=== PATIENT | male | born 1950 | race Caucasian/White ===

== ENCOUNTER 2017-07-03 11:12 | Emergency (ER) | payer MEDICARE, BC, OTHER, SELFPAY ==
[2017-07-03 11:13] VITALS: BP 157/86; PULSE 68; RESP 16; TEMP 36.2; O2SAT 98; BMI 35.5
--- NOTE | 2017-07-03 11:27 | RAD_ITS ---
STUDY: X-RAY CHEST REASON FOR EXAM: Male, 67 years old. Shortness of breath/dyspnea. TECHNIQUE: Single AP portable view of the chest. COMPARISON: Comparison is made with prior study dated March 07, 2015. FINDINGS: EKG electrodes are seen. Hyperinflation. Mild increased markings in the left lung base suggestive of atelectasis. There is no demonstrated pleural abnormality. There is moderate cardiac enlargement. Normal mediastinum and mathew. Normal visualized pulmonary arteries. Normal visualized aortic arch and descending thoracic aorta. Normal visualized thoracic spine. Normal visualized ribs, clavicles, and shoulders. Hiatal hernia. RAD/Chest 1 View (Portable) IMPRESSION: Hyperinflation. Mild increased markings at the left lung base. Electronically Signed: Bertin Kirk MD at 13:27 EST Tel [phone], Service support ,
--- NOTE | 2017-07-03 11:27 | EKG12_ITS ---
Test Reason : Blood Pressure : / mmHG Vent. Rate : 070 BPM Atrial Rate : 070 BPM P-R Int : 162 ms QRS Dur : 084 ms QT Int : 410 ms P-R-T Axes : -43 027 030 degrees QTc Int : 442 ms Normal sinus rhythm Abnormal ECG Confirmed by DIANE MATOS MD ([id number]), news editor LUCIA MORAN ([id number]) on 07/07/2017 3:50:11 PM Referred By: Confirmed By:DIANE MATOS MD
--- NOTE | 2017-07-03 11:42 | CT_ITS ---
STUDY: CT ABDOMEN AND PELVIS WITHOUT CONTRAST REASON FOR EXAM: Male, 67 years old. 5 day history of bloody diarrhea. Fever and chills. RADIATION DOSAGE (If Supplied By Facility): CTDIvol = ( 22.36 ) mGy, DLP = ( 1128.45 ) mGycm TECHNIQUE: Transaxial images were obtained from the dome of the diaphragm to the symphysis pubis without oral contrast, and without intravenous contrast. Sagittal and coronal images were reconstructed. Individualized dose optimization techniques were used for this CT. COMPARISON: Comparison is made with prior study dated January 14, 2015. FINDINGS: Minimal increased markings in the lateral aspect of the lingular segment of the left upper lobe suggestive of atelectasis. Coronary artery calcification. Normal liver. Normal gallbladder and extrahepatic biliary system. Normal spleen. Normal pancreas. Normal bilateral adrenal glands. Normal right kidney. Normal left kidney. There is a large hiatal hernia composed mostly of the fundus of the stomach. Normal small intestine. There are multiple colonic diverticula consistent with diverticulosis. Mild degree of increased markings in the surrounding sigmoid peritoneal fat suggestive of mild degree of sigmoid diverticulitis. There is non-visualization of the appendix. There is diffuse atherosclerotic calcification of the abdominal aorta, without a demonstrated aneurysm. Normal inferior vena cava. Normal retroperitoneum. Normal urinary bladder. There is enlargement of the prostate gland. Evidence of prior left inguinal hernia repair. There are diffuse degenerative changes of the visualized lumbar spine. CT/Abdomen/Pelvis without Cont IMPRESSION: Sigmoid diverticulosis and mild degree of the sigmoid diverticulitis. Electronically Signed: Bertin Kirk MD at 13:31 EST Tel [phone], Service support ,
--- NOTE | 2017-07-03 11:43 | ED.VISSUMM ---
- ER Visit Summary Date of Service: 07/03/17 Chief Complaint: [] Harsh cough fever body aches now diarrhea and blood per rectum History of Present Illness: The patient is a 67 M [] week or more of harsh cough body aches was seen at [facility] facility had flu screen that was negative x-rays labs etc. the are all normal he was told follow-up his family physicians to include [facility]. He reports for the last few days also developed crampy lower abdominal pain 5-6 diarrheal bowel movements a day that are occasionally bloody and he presents for evaluation. His COPD is generally stable he is not prone to pneumonia he does not recall ever having an SD DVT he does not have any known GI elements he has not been on antibiotics that he can recall he has no history of C. difficile Physical Examination: [] His vitals are within normal range she is chronically on about 2-4 L of oxygen is wearing that now his pulse ox is 95% his nose is slightly congested he does have a dry cough but is in no distress his lungs are diminished bilaterally the heart tones are unremarkable distant abdomen is obese but soft nontender the area is unremarkable the rectal exam with nurse shipping coordinator shows some mild brownish liquid no blood no pain upper lower extremities unremarkable Test Results: [] Emergency Department Course and Treatment: [] He has multiple complaints as above given all of that a comprehensive evaluations pursued Studies are generally unremarkable, hemoglobin 13, CT abdomen shows sigmoid diverticulitis no abscess he was started on IV fluids IV antibiotics. We spoke with our hospitalist here at [facility], the patient did pass a darker stool and there is a concern for GI bleeding given that there is no GI coverage at [facility] hospitalist recommended transfer to [facility], patient was agreeable to that transfer we spoke with Dr. guicho quintana at [facility] and then Dr. muir at [facility], they both accepted the patient in transfer he is very stable he will be transferred there for further management Treatment Plan: [] Disposition: [] As for stable transferred [facility] Impression: [] Sigmoid diverticulitis, concern for GI bleed, exacerbation of COPD This note was generated with [employer] dictation software. It may contain incorrect words, spelling, and punctuation that were not noted in review of the chart prior to signing ED Disposition - Plan for ED Patient: Chief Complaint: Shortness of Breath Referrals: Ge Martinez MD [Primary Care Provider] -
[2017-07-03] MEDS: Ipratropium/Albuterol Sulfate 3 ML AMPUL.NEB INHALATION (11:45)
[2017-07-03 11:51] VITALS: BP 126/73; PULSE 70; RESP 20
[2017-07-03 11:53] VITALS: PULSE 70; RESP 20
[2017-07-03] MEDS: 0.9% Normal Saline 1,000 ML 125 ML IV (12:06)
[2017-07-03 12:31] LABS: Absolute Lymphocyte Count 1.27 X10^3/ul (0.83-4.51); Absolute Neutrophil Count 3.3 X10^3/uL (2.0-7.7); Basophil# 0.06 X10^3/uL; Eosinophil# 0.42 X10^3/uL; Eosinophils% 6.9 % (0-5); Hematocrit 39.9 % (40-54); Hemoglobin 12.7 g/dl (13.0-16.5); Lymphocyte # 1.27 X10^3/ul (4.0); Lymphocyte % 20.9 % (19-41); Mean Corp Hgb Conc 31.8 g/gl (32-36); Mean Corpuscular Hgb 28.8 pg (27.0-32.0); Mean Corpuscular Volume 90.5 fL (80-94); Mean Platelet Vol. 9.8 fl (6.2-12.0); Monocyte# 1.05 X10^3/uL; Monocyte% 17.3 % (0-10); Neutrophil # 3.26 X10^3/uL (2.7-7.7); Neutrophil % 53.6 % (47-70); Platelet Count 238 K/mm3 (150-450); RBC Distribution Width CV 12.7 % (11.6-14.6); RBC Distribution Width SD 41.7 fl (35.1-43.9); Red Blood Count 4.41 M/mm3 (4.6-6.2); White Blood Count 6.1 K/mm3 (4.4-11.0)
[2017-07-03 12:33] LABS: POSITIVE COUNT NO; POSITIVE DIFFERENTIAL NO; POSITIVE MORPHOLOGY NO
[2017-07-03 12:38] LABS: Bacteria 0 SEEN /hpf (None Seen); Mucous, Urine 0 SEEN /hpf (<or=2+); Squamous Epithelial Cells - UA 0 SEEN /hpf (0-5)
[2017-07-03 12:39] LABS: Color, Urine Yellow (Yellow); Glucose, Dipstick Normal (Normal); Ketone-Dipstick Negative (Negative); Leukocyte Esterase-Dipstick 25 /ul (Negative); Nitrite-Dipstick Negative (Negative); Occult Blood-Urine 10 /ul (Negative); Protein-Dipstick Negative (Negative); Urine Bilirubin Dipstick Negative (Negative); Urine Clarity Sl. Cloudy (Clear); Urine Urobilinogen Normal (Normal); Urine pH 6.5 (5.0 - 8.0)
[2017-07-03 12:43] LABS: AST(SGOT) 19 U/L (15-37); Alanine Aminotransfer ALT/SGPT 33 U/L (16-61); Albumin, Serum 3.4 g/dL (3.2-5.0); Alkaline Phosphatase 62 U/L (45-117); Anion Gap 8 (5-15); BUN 9 mg/dL (7-18); BUN/Creat Ratio 10.4 RATIO (10-20); Bilirubin, Direct 0.13 mg/dL (0.00-0.30); Calcium,Total 8.7 mg/dL (8.5-10.1); Chloride 97 mmol/L (98-107); Creatinine, Serum 0.87 mg/dL (0.70-1.30); EST Glomerular Filtration Rate 93 mL/min (>60); Est Glom Filt Rate - Afr Amer 112 mL/min (>60); Globulin 3.9 g/dL (2.2-4.2); Glucose 141 mg/dL (70-110); Lipase 130 U/L (73-393); Potassium 3.8 mmol/L (3.5-5.1); Protein, Total 7.3 g/dL (6.4-8.2); Sodium Level 135 mmol/L (136-145)
[2017-07-03 12:52] LABS: Red Blood Cells-Urine 0-5 SEEN /hpf (0-5); White Blood Cells 0-5 SEEN /hpf (0-5)
[2017-07-03 12:57] LABS: BNP,B-Type NATRIURETIC PEPTIDE 29.4 pg/mL (0-100)
[2017-07-03 13:13] VITALS: BP 118/70; PULSE 63; RESP 18; O2SAT 98
--- NOTE | 2017-07-03 15:03 | ED.RN ---
spoke with Ranjana barrios to inform of lab results per their request
[2017-07-03 15:34] VITALS: BP 130/79; PULSE 65; RESP 14; O2SAT 98
== END 2017-07-03 16:45 | disposition short-term general hospital (02) ==
LOC: ED 13:29 → MS3 14:58
PROVIDERS: Emergency Provider Emergency Medicine; Family Provider Family Medicine; PCP Family Medicine
DX: K57.32 Diverticulitis of large intestine without perforation or abscess without bleeding (principal); J44.1 Chronic obstructive pulmonary disease with (acute) exacerbation; E11.9 Type 2 diabetes mellitus without complications; R06.02 Shortness of breath
CPT/HCPCS: 71045; 74176; 80048; 80076; 81001; 82274; 83690; 83880; 84484; 85025; 87493; 87804; 93005; 94640; 99285; J7030; J7050; A4216; J0744

== ENCOUNTER 2017-09-16 08:16 | Emergency (ER) | payer OTHER, MEDICARE, BC, SELFPAY ==
[2017-09-16 08:17] VITALS: BP 178/95; PULSE 57; RESP 16; TEMP 36.5; O2SAT 99; BMI 72.7
[2017-09-16 08:53] LABS: Absolute Lymphocyte Count 1.12 X10^3/ul (0.83-4.51); Absolute Neutrophil Count 4.3 X10^3/uL (2.0-7.7); Basophil# 0.04 X10^3/uL; Basophil% 0.6 % (0-1); Eosinophil# 0.44 X10^3/uL; Eosinophils% 6.8 % (0-5); Hematocrit 40.2 % (40-54); Lymphocyte # 1.12 X10^3/ul (4.0); Lymphocyte % 17.2 % (19-41); Mean Corp Hgb Conc 32.3 g/gl (32-36); Mean Corpuscular Hgb 29.4 pg (27.0-32.0); Mean Platelet Vol. 9.9 fl (6.2-12.0); Monocyte# 0.58 X10^3/uL; Monocyte% 8.9 % (0-10); Neutrophil # 4.32 X10^3/uL (2.7-7.7); Neutrophil % 66.3 % (47-70); Platelet Count 238 K/mm3 (150-450); RBC Distribution Width CV 12.9 % (11.6-14.6); RBC Distribution Width SD 43.2 fl (35.1-43.9); Red Blood Count 4.42 M/mm3 (4.6-6.2); White Blood Count 6.5 K/mm3 (4.4-11.0)
[2017-09-16 08:55] LABS: POSITIVE COUNT NO; POSITIVE DIFFERENTIAL NO; POSITIVE MORPHOLOGY NO
[2017-09-16 08:59] LABS: BUN 13 mg/dL (7-18); BUN/Creat Ratio 16.1 RATIO (10-20); Calcium,Total 8.7 mg/dL (8.5-10.1); Chloride 101 mmol/L (98-107); Creatinine, Serum 0.81 mg/dL (0.70-1.30); EST Glomerular Filtration Rate 101 mL/min (>60); Est Glom Filt Rate - Afr Amer 122 mL/min (>60); Estimated Creatinine Clearance 98.64 ml/min; Glucose 199 mg/dL (74-106); Sodium Level 140 mmol/L (136-145)
[2017-09-16 09:00] LABS: Anion Gap 9 (5-15)
[2017-09-16 09:03] VITALS: PULSE 58; RESP 20
[2017-09-16 09:03] LABS: Bacteria 0 SEEN /hpf (None Seen); Mucous, Urine 0 SEEN /hpf (<or=2+); Squamous Epithelial Cells - UA 0 SEEN /hpf (0-5); White Blood Cells 0 SEEN /hpf (0-5)
[2017-09-16] MEDS: Ipratropium/Albuterol Sulfate 3 ML AMPUL.NEB INHALATION (09:03)
[2017-09-16] MEDS: 0.9% Normal Saline 1,000 ML 150 ML IV (09:08)
[2017-09-16] MEDS: MethylPREDNISolone 125 MG/2 ML Vial IV (09:09)
[2017-09-16 09:12] LABS: Color, Urine Yellow (Yellow); Glucose, Dipstick Normal (Normal); Ketone-Dipstick Negative (Negative); Leukocyte Esterase-Dipstick Negative /ul (Negative); Nitrite-Dipstick Negative (Negative); Occult Blood-Urine 10 /ul (Negative); Protein-Dipstick Negative (Negative); Urine Bilirubin Dipstick Negative (Negative); Urine Clarity Clear (Clear); Urine Urobilinogen Normal (Normal); Urine pH 6.5 (5.0 - 8.0)
[2017-09-16 09:13] LABS: Lactic Acid 1.7 mmol/L (0.4-2.0)
[2017-09-16 09:21] LABS: Red Blood Cells-Urine 0-5 SEEN /hpf (0-5)
--- NOTE | 2017-09-16 09:34 | RAD_ITS ---
STUDY: X-RAY CHEST REASON FOR EXAM: Male, 67 years old. COPD, productive cough TECHNIQUE: PA and lateral views of the chest. COMPARISON: July 03, 2017 FINDINGS: There is new mild elevation of the left hemidiaphragm and left basilar atelectasis. There is no demonstrated pleural abnormality. Normal size heart. Normal mediastinum and mathew. Normal visualized pulmonary arteries. There is atherosclerotic calcification of the aortic arch with tortuosity. There are diffuse degenerative changes of the visualized thoracic spine. Normal visualized ribs, clavicles, and shoulders. There is no demonstrated abnormality of the visualized soft tissue structures of the upper abdomen. RAD/Chest PA and Lateral IMPRESSION: There is new mild elevation of the left hemidiaphragm and left basilar atelectasis. Electronically Signed: Skye Mims MD at 10:01 EDT , Service support ,
--- NOTE | 2017-09-16 09:56 | ED.VISSUMM ---
- ER Visit Summary Date of Service: 09/16/17 Chief Complaint: Cough and shortness of breath History of Present Illness: The patient is a [address] Martinez. He reports that he has a cough began 2 days ago. Is productive yellow sputum without blood. He denies any fever or chills. Reports that he has mild shortness of breath currently and severe shortness of breath at worst. This is worsened by exertion or coughing. It is relieved by oxygen and albuterol. He denies any chest pain, pressure, or tightness. Physical Examination: Vitals: Stable. Afebrile. General: Well-nourished and well-developed. Head: Normocephalic atraumatic. Neck: Supple, no lymphadenopathy. No JVD. Nontender. Cardiovascular: Regular rate and rhythm. 2 out of 6 systolic murmur. Respiratory: No respiratory distress. Mild wheezing bilaterally with decreased air movement. Abdominal: Soft, nontender, nondistended, normal bowel sounds. No guarding, rebound, or peritoneal signs. Back: Nontender. Extremities: Nontender, no edema. Skin: Normal color, no rash. Neurologic: Alert and oriented ?3. Cranial nerves II through XII are intact. Normal strength and sensation. Psych: Normal affect. Test Results: CBC is remarkable for lymphocytes of 17 eosinophils of 7. Chem-7 is more for glucose of 199. UA is negative. Lactic acid is normal. Chest x-ray shows chronic changes. Chest x-ray shows left basilar atelectasis with an elevated left hemidiaphragm. Emergency Department Course and Treatment: Patient is treated with albuterol and Atrovent aerosols. He was given Solu-Medrol IV. He feels improved. Treatment Plan: Patient would like to go home. He will be discharged on prednisone and Zithromax. Is given a prescription for a nebulizer. Instructed to follow-up with Dr. Martinez in 1-2 days if not improving. Return to the emergency department for any worsening symptoms. Disposition: To home in improved and stable condition. Impression: 1. COPD exacerbation. This note was generated with Slate Scienceation software. It may contain incorrect words, spelling, and punctuation that were not noted in review of the chart prior to signing ED Disposition - Plan for ED Patient: Disposition: Home or Assisted Living Chief Complaint: Shortness of Breath Instructions: ED COPD Flare Prescriptions: Albuterol Aerosols [Ventolin Aerosols] 2.5 mg INHALATION Q4H PRN #25 vial Azithromycin [Zithromax] 250 mg PO DAILY #6 tablet Nebulizer [Aeroneb Go Nebulizer] 1 each MC DAILY #1 each Nebulizer Accessories [Aeroneb Go] 1 each MC DAILY #1 each Nebulizer and Compressor [[place] Choice Nebulizer] 1 ea MC DAILY #1 ea Prednisone 10 mg PO DAILY #63 tablet Referrals: Ge Martinez MD [Primary Care Provider] - 1-2 Days if not improving
[2017-09-16 10:44] VITALS: BP 117/52; PULSE 73; RESP 24; O2SAT 92
[2017-09-16] MEDS: predniSONE 20 MG Tablet 60 MG PO (11:30)
[2017-09-16] MEDS: Azithromycin 250 MG Tablet 500 MG PO (11:30)
== END 2017-09-16 12:04 | disposition home or self-care (01) ==
PROVIDERS: Emergency Provider Emergency Medicine; Family Provider Family Medicine; PCP Family Medicine
DX: J44.1 Chronic obstructive pulmonary disease with (acute) exacerbation (principal); I25.10 Atherosclerotic heart disease of native coronary artery without angina pectoris; G47.33 Obstructive sleep apnea (adult) (pediatric); E11.9 Type 2 diabetes mellitus without complications; I10 Essential (primary) hypertension; N40.0 Benign prostatic hyperplasia without lower urinary tract symptoms; Z86.73 Personal history of transient ischemic attack (TIA), and cerebral infarction without residual deficits; R01.1 Cardiac murmur, unspecified
CPT/HCPCS: 36415; 71046; 80048; 81001; 83605; 85025; 87040; 87070; 87205; 94640; 96361; 96374; 99285; J7030; A4216

== ENCOUNTER 2017-10-14 08:26 | Observation (INO) | payer MEDICARE, BC, SELFPAY ==
[2017-10-14] VITALS (11 sets, daily range): BP systolic 122–153; BP diastolic 72–98; PULSE 63–97; RESP 18–26; TEMP 36.6–36.9; O2SAT 94–99; BMI 33.6
--- NOTE | 2017-10-14 08:43 | EKG12_ITS ---
Test Reason : SOB Blood Pressure : / mmHG Vent. Rate : 063 BPM Atrial Rate : 063 BPM P-R Int : 194 ms QRS Dur : 090 ms QT Int : 404 ms P-R-T Axes : -10 040 047 degrees QTc Int : 413 ms Normal sinus rhythm Normal ECG Confirmed by DIANE MATOS MD ([id number]), state editor LUCIA MORAN ([id number]) on 10/17/2017 2:58:31 PM Referred By: TYRA Confirmed By:DIANE MATOS MD
--- NOTE | 2017-10-14 08:48 | ED.VISSUMM ---
- ER Visit Summary Date of Service: 10/14/17 Chief Complaint: Shortness of breath History of Present Illness: The patient is a 67 M with a history of COPD. He wears 3 L of oxygen chronically. Patient reports increased shortness of breath and wheezing over the past 4 or 5 days. He is bringing up yellow sputum. He denies fever. He does note decreased activity tolerance secondary to his shortness of breath. Physical Examination: Blood pressure is 153/98, temperature 98.4, heart rate 66, respiratory rate 26, pulse ox 95% on 3 L nasal cannula. Head and neck examination is unremarkable. Heart is regular rate and rhythm. Lung sounds are with expiratory wheezes throughout. He is able to speak 6-7 word sentences. Abdomen is soft and nontender. Lower extremity examination reveals no calf tenderness or edema. Strong distal pulses are noted. Test Results: EKG is sinus at 63 with no sign of acute ischemia. Portable chest x-ray is read as no acute abnormality. CBC and chemistry studies are significant only for glucose of 215. Troponin is less than 0.015. Lactate is normal. Blood cultures were sent. Emergency Department Course and Treatment: Patient was given a cycle of aerosols treatments along with IV Solu-Medrol. On repeat evaluation he has continued expiratory wheezes throughout. Respiratory rate is improved into the teens. Oxygen saturation is maintained. Patient is given a dose of p.o. Levaquin and will be admitted for further steroids and breathing treatments. Treatment Plan: [] Disposition: Admit Impression: COPD exacerbation This note was generated with iHandle dictation software. It may contain incorrect words, spelling, and punctuation that were not noted in review of the chart prior to signing ED Disposition - Plan for ED Patient: Chief Complaint: Shortness of Breath Referrals: Ge Martinez MD [Primary Care Provider] -
[2017-10-14] MEDS: Albuterol 2.5 MG/3 ML VIAL.NEB. INHALATION ×3 (08:55→15:35)
[2017-10-14] MEDS: Ipratropium/Albuterol Sulfate 3 ML AMPUL.NEB INHALATION ×3 (08:55→19:04)
--- NOTE | 2017-10-14 09:00 | RAD_ITS ---
STUDY: X-RAY CHEST REASON FOR EXAM: Male, 67 years old. Shortness of breath/dyspnea. TECHNIQUE: Single AP portable view of the chest. COMPARISON: Comparison is made with prior study dated September 16, 2017. FINDINGS: EKG electrodes are seen. The lungs are clear and expanded. There is no demonstrated pleural abnormality. Normal size heart. Normal mediastinum and mathew. Normal visualized pulmonary arteries. Normal visualized aortic arch and descending thoracic aorta. Normal visualized thoracic spine. Normal visualized ribs, clavicles, and shoulders. Hiatal hernia. RAD/Chest 1 View (Portable) IMPRESSION: No acute abnormality is seen. Electronically Signed: Bertin Kirk MD at 9:44 EDT Tel [phone], Service support ,
[2017-10-14 09:10] LABS: Absolute Lymphocyte Count 0.98 X10^3/ul (0.83-4.51); Absolute Neutrophil Count 3.2 X10^3/uL (2.0-7.7); Basophil# 0.04 X10^3/uL; Basophil% 0.7 % (0-1); Eosinophil# 1.01 X10^3/uL; Eosinophils% 17.6 % (0-5); Hematocrit 41.5 % (40-54); Hemoglobin 13.5 g/dl (13.0-16.5); Lymphocyte # 0.98 X10^3/ul (4.0); Mean Corp Hgb Conc 32.5 g/gl (32-36); Mean Corpuscular Hgb 29.7 pg (27.0-32.0); Mean Corpuscular Volume 91.4 fL (80-94); Mean Platelet Vol. 9.7 fl (6.2-12.0); Monocyte# 0.52 X10^3/uL; Neutrophil # 3.19 X10^3/uL (2.7-7.7); Neutrophil % 55.5 % (47-70); Platelet Count 243 K/mm3 (150-450); RBC Distribution Width CV 12.6 % (11.6-14.6); RBC Distribution Width SD 41.4 fl (35.1-43.9); Red Blood Count 4.54 M/mm3 (4.6-6.2); White Blood Count 5.8 K/mm3 (4.4-11.0)
[2017-10-14 09:12] LABS: POSITIVE COUNT NO; POSITIVE DIFFERENTIAL NO; POSITIVE MORPHOLOGY NO
[2017-10-14] MEDS: MethylPREDNISolone 125 MG/2 ML Vial IV (09:15)
[2017-10-14] MEDS: 0.9% Normal Saline 1,000 ML 150 ML IV (09:15)
[2017-10-14 09:37] LABS: Lactic Acid 1.6 mmol/L (0.4-2.0)
[2017-10-14 09:38] LABS: Anion Gap 7 (5-15); BUN 9 mg/dL (7-18); BUN/Creat Ratio 12.2 RATIO (10-20); Calcium,Total 8.7 mg/dL (8.5-10.1); Chloride 100 mmol/L (98-107); Creatinine, Serum 0.74 mg/dL (0.70-1.30); EST Glomerular Filtration Rate 112 mL/min (>60); Est Glom Filt Rate - Afr Amer 136 mL/min (>60); Glucose 215 mg/dL (74-106); Potassium 3.9 mmol/L (3.5-5.1); Sodium Level 138 mmol/L (136-145)
--- NOTE | 2017-10-14 09:55 | NURSING ---
CALLED HELEN SCHAFER, LEFT A MESSAGE ON TRANSFER LINE WITH INFO
[2017-10-14] MEDS: levoFLOXacin 750 MG Tablet PO (09:56)
--- NOTE | 2017-10-14 10:18 | NURSING ---
MED SURG OBS TERELETSKY
[2017-10-14 12:11] LABS: Bedside Glucose 220 mg/dL (70-110)
[2017-10-14] MEDS: 0.9% NaCl Peripheral Flush Adult/Peds IV ×2 (13:26→22:01)
--- NOTE | 2017-10-14 13:59 | CASEMGMT ---
RN CM Assessment. See Link. DC Plan is to return home. -Pt has home O2. Discussed increasing portability with [facility], and pt will discuss getting portable concentrator with them. -Independent, is nurse and pt denies dc needs at this time. Donna MATSONN RN ACM
--- NOTE | 2017-10-14 14:16 | HP.PCM_ITS ---
Problem List (1) Diabetes mellitus type 2 in obese Status: Chronic (2) Hyperlipidemia Status: Chronic (3) Hypertension Status: Chronic (4) Benign prostatic hypertrophy Status: Chronic (5) Sleep apnea Status: Chronic (6) Coronary atherosclerosis of [place] coronary vessel Status: Chronic Comment: Status post 2 stents in 2004 (7) COPD (chronic obstructive pulmonary disease) Status: Chronic (8) History of PTCA Status: Chronic (9) History of CVA (cerebrovascular accident) Status: Chronic (10) AV block, Mobitz 1 Status: Chronic (11) History of upper gastrointestinal bleeding Status: Resolved (12) History of DVT (deep vein thrombosis) Status: Resolved (13) GERD (gastroesophageal reflux disease) Status: Chronic History of Present Illness Date of Admission: 10/14/17 Chief Complaint: Shortness of breath The patient is a 67 year old M who presents to the emergency room with a 4-5 day history of shortness of breath, productive cough with yellow sputum. He denies fever, chills. Denies chest pain. Patient has oxygen available at home which she wears as needed. He states he has also recently set up with a nebulizer from [facility]. He has a history of COPD but has not followed with a de icer finisher since initial diagnosis. He is a former smoker and quit approximately 16 years ago. Patient's other past medical history includes type 2 diabetes mellitus, hyperlipidemia, hypertension, BPH, obstructive sleep apnea on CPAP, CAD status post stent ?2, history of CVA, history of DVT, history of AV block, Mobitz 1. Patient denies any other current complaints. Past Medical History Past Medical History (Chronic Problems): Chronic Problems GERD (gastroesophageal reflux disease) (Chronic) Diabetes mellitus type 2 in obese (Chronic) Hyperlipidemia (Chronic) Hypertension (Chronic) Benign prostatic hypertrophy (Chronic) Sleep apnea (Chronic) Coronary atherosclerosis of [place] coronary vessel (Chronic) Status post 2 stents in 2004 COPD (chronic obstructive pulmonary disease) (Chronic) History of PTCA (Chronic) History of CVA (cerebrovascular accident) (Chronic) AV block, Mobitz 1 (Chronic) Allergies No Known Allergies Allergy (Verified 10/14/17 08:29) Home Medications: Ambulatory Orders Medication Instructions Recorded Hydrochlorothiazide [Hctz] 25 mg PO DAILY 03/19/14 Lisinopril [Zestril] 20 mg PO BID 03/19/14 Tamsulosin HCl [Flomax] 0.4 mg PO DAILY 03/19/14 Amitriptyline HCl 10 mg PO QHS PRN 03/22/14 Isosorbide Mononitrate [Imdur] 60 mg PO DAILY 03/22/14 Albuterol Inhaler [Ventolin Hfa] 2 puff INHALATION Q2H PRN PRN #1 03/24/14 Pantoprazole Sodium [Protonix] 40 mg PO DAILY #30 tablet 03/24/14 Metformin HCl [Glucophage] 500 mg PO BID 12/24/14 Atorvastatin Calcium [Lipitor] 80 mg PO QHS #30 tablet 03/10/15 Hyoscyamine Sulfate 0.125 mg SL BID PRN PRN 12/18/16 Symbicort 160-4.5 Mcg Inhaler 1 puff PO DAILY 12/18/16 Ascorbic Acid [Vitamin C] 500 mg PO DAILY 07/03/17 Aspirin [Aspirin, Baby] 81 mg PO QHS 07/03/17 Cinnamon Bark [Cinnamon] 1,000 mg PO DAILY 07/03/17 Finasteride [Proscar] 5 mg PO DAILY 07/03/17 Fish Oil/Dha/Epa [Fish Oil 1,200 1 each PO DAILY 07/03/17 mg Fish Oil] Metoprolol Tartrate 25 mg PO BID 07/03/17 Ranitidine [Zantac] 150 mg PO BID 07/03/17 Albuterol Aerosols [Ventolin 2.5 mg INHALATION Q4H PRN #25 vial 09/16/17 Aerosols] Clopidogrel Bisulfate [Plavix] 75 mg PO DAILY 10/14/17 Glucosamine/MSM/Chondroitin A 1 each PO DAILY 10/14/17 [Glucosamine Chondroit MSM Tab] Iron 10/14/17 Multivitamin [Multiple Vitamins] 1 each PO DAILY 10/14/17 Zolpidem Tartrate [Ambien] 10 mg PO QHS 10/14/17 Surgical History: appendectomy, herniorrhaphy, - - Arthroscopy both knees, cardiac stents Psychiatric History: No pertinent psych hx Lives: Spouse/ Significant Other Smoking Status: Former smoker Alcohol: None Drugs: None - *Family History Maternal History Items: No pertinent history Paternal History Items: Heart Disease Sibling History Items: No pertinent history Review of Systems Constitutional: Reports: Fatigue. Denies: Chills, Fever, Weight Change HEENT: Denies: Head Aches, Sinus Congestion, Sinus Drainage Cardiovascular: Denies: Chest Pain, Light Headedness, Palpitations, Syncope Respiratory: Reports: Cough, Shortness of Breath, Sputum production, Wheezing Gastrointestinal: Denies: Abdominal Pain, Nausea, Vomiting Genitourinary: Denies: Dysuria Musculoskeletal: Denies: Joint Pain, Joint Tenderness Skin: Denies: Rash, Wounds Neurological: Denies: Numbness, Tingling, Focal weakness Psychiatric: Denies: Anxiety, Depression, Homicidal Ideations, Suicidal Ideations Hematologic/ Lymphatic: Denies: Easy Bruising, Easy Bleeding VTE Information - Inpt Only VTE Present on Admission: No VTE Mechan Device Prophylaxis: None VTE Pharm Prophylaxis ordered?: Yes - Physical Exam General: Alert, Oriented x3, Cooperative, No apparent distress HEENT: Atraumatic, PERRLA, EOMI, Normocephalic Neck: Supple, No JVD, Negative Carotid Bruits Lungs: Diminished, Wheezes Cardiovascular: Regular rate, Regular Rhythm, Normal S1, Normal S2, No murmurs Abdomen: Bowel Sounds Present, Soft, Non Tender, Non-Distended Extremities: No clubbing, No cyanosis, No edema, Capillary Refill Less than 3 Seconds Skin: No rashes, No breakdown Musculoskeletal: No Tenderness to Palpation of Joints or Extremities Neurological: Cranial nerves II-XII grossly intact, Neuro grossly intact Psych/Mental Status: Normal Affect, Appropriate Vital Signs Temp Pulse Resp BP Pulse Ox 98.1 F 66 24 H 129/73 H 94 10/14/17 11:12 10/14/17 11:12 10/14/17 11:12 10/14/17 11:12 10/14/17 11:12 Oxygen Flow Rate (L/min) 4 Oxygen Delivery Method Nasal Cannula Weight: 112.5 kg Body Mass Index (BMI) 33.6 POC Glucose 10/14/17 11:18 POC Glucose 220 H Assessment/Plan 1. Acute on chronic COPD exacerbation-chest x-ray on admission with no acute abnormality. Afebrile. No leukocytosis. Patient with wheezing on assessment. Albuterol and DuoNeb aerosols. IV Solu-Medrol. Zithromax 250 mg p.o. daily. Obtain respiratory panel. Recommend outpatient follow-up with pulmonary medicine. Patient wishes to follow-up with Dr. Vasquez or Dr. Beltran at discharge. 2. Acute hypoxia on chronic hypoxic respiratory failure-secondary to #1. Has oxygen available at home which he wears as needed. Continue supplemental oxygen to maintain O2 at or above 90%. 3. Type 2 diabetes mellitus-continue home oral regimen. Sliding scale insulin. Accu-Cheks before meals at bedtime. 4. CAD status post stents X2 in 2004-continue aspirin, statin, Plavix. 5. History of CVA-continue aspirin, statin, Plavix. 6. Obstructive sleep apnea-continue CPAP at bedtime. 7. History of DVT-previously in 2013. Not on further oral anticoagulation. 8. History of upper GI bleed-continue PPI. 9. Hypertension-stable, continue home regimen including hydrochlorothiazide, Imdur, lisinopril. 10. Hyperlipidemia-continue statin. 11. BPH-continue home Flomax, Proscar regimen. 12. GERD-continue PPI. 13. Obesity-encouraged diet and lifestyle modifications. DVT prophylaxis-heparin subcu. This patient was seen by ANYA Boyer under the supervision of Dr. Valdez.
[2017-10-14] MEDS: guaiFENesin Dm 10 ML UDC PO (16:05)
--- NOTE | 2017-10-14 16:21 | CHAPLAIN ---
Type of Pastoral Visit _x__ Initial Visit ___ Follow-up Visit ___ On-call Visit ___ General Patient Visit ___ Spiritual Assessment ___ Family Conference ___ Bereavement ___ Rapid Response ___ Code Blue ___ Other (describe below) Pastoral Care Referral From _x__ Patient ___ Family ___ Nurse ___ Physician ___ Windows Support Engineer ___ Floor Installation Mechanic ___ Other (describe below) Sacrament/Intervention _x__ Active listening ___ Anointing ___ Confucianist ___ Bereavement ___ Communion _x__ Mame exploration ___ _x__ Life review _x__ Prayer ___ Reconciliation ___ Sacrament of Sick ___ Supportive presence ___ Wedding ___ Other (describe below) Pastoral Comments
[2017-10-14 16:51] LABS: Bedside Glucose 310 mg/dL (70-110)
[2017-10-14] MEDS: Metoprolol Tartrate 25 MG Tablet PO (21:48)
[2017-10-14] MEDS: Atorvastatin Calcium 80 MG Tablet PO (21:48)
[2017-10-14] MEDS: Aspirin 81 MG TAB.CHEW PO (21:49)
[2017-10-14] MEDS: Heparin Injection (Vial) 5,000 UNIT/ML VIAL 5000 UNIT SC (21:49)
[2017-10-14] MEDS: Lisinopril 20 MG Tablet PO (21:54)
[2017-10-15] VITALS (10 sets, daily range): BP systolic 109–149; BP diastolic 62–86; PULSE 70–96; RESP 16–22; TEMP 36.6–36.8; O2SAT 91–97
[2017-10-15 00:11] LABS: Bedside Glucose 422 mg/dL (70-110)
[2017-10-15] MEDS: guaiFENesin Dm 10 ML UDC PO ×2 (00:48→05:54)
[2017-10-15] MEDS: Ipratropium/Albuterol Sulfate 3 ML AMPUL.NEB INHALATION ×3 (01:11→13:42)
[2017-10-15] MEDS: Albuterol 2.5 MG/3 ML VIAL.NEB. INHALATION (03:33)
[2017-10-15 06:11] LABS: Bedside Glucose 256 mg/dL (70-110)
[2017-10-15] MEDS: Finasteride 5 MG Tablet PO (07:26)
[2017-10-15] MEDS: Isosorbide Mononitrate 60 MG Tablet PO (07:26)
[2017-10-15] MEDS: Metoprolol Tartrate 25 MG Tablet PO (07:26)
[2017-10-15] MEDS: Pantoprazole Sodium 40 MG Tablet PO (07:26)
[2017-10-15] MEDS: hydroCHLOROthiazide 25 MG Tablet PO (07:27)
[2017-10-15] MEDS: Heparin Injection (Vial) 5,000 UNIT/ML VIAL 5000 UNIT SC (07:27)
[2017-10-15] MEDS: Azithromycin 250 MG Tablet PO (07:27)
[2017-10-15] MEDS: Tamsulosin HCl 0.4 MG Capsule PO (07:27)
[2017-10-15] MEDS: Lisinopril 20 MG Tablet PO (07:27)
--- NOTE | 2017-10-15 08:51 | PCM.PROGNOTE ---
Subjective: Patient seen and examined. States shortness of breath is improving. Continues to have productive cough. Denies fever, chills. States he is ambulating to the bathroom without significant dyspnea. Patient remains on 3 L nasal cannula. Typically wears oxygen only as needed at home. - Physical Exam General: Alert, Oriented x3, Cooperative HEENT: Atraumatic, PERRLA, EOMI, Normocephalic Neck: Supple, No JVD, Negative Carotid Bruits Lungs: Diminished, Wheezes Cardiovascular: Regular rate, Regular Rhythm, Normal S1, Normal S2, No murmurs Abdomen: Bowel Sounds Present, Soft, Non Tender, Non-Distended, Obese Extremities: No clubbing, No cyanosis, No edema, Capillary Refill Less than 3 Seconds Skin: No rashes, No breakdown Musculoskeletal: No Tenderness to Palpation of Joints or Extremities Neurological: Cranial nerves II-XII grossly intact, Neuro grossly intact Psych/Mental Status: Normal Affect, Appropriate Vital Signs Temp Pulse Resp BP Pulse Ox 98.3 F 70 16 141/77 H 97 10/15/17 07:23 10/15/17 07:26 10/15/17 07:23 10/15/17 07:23 10/15/17 07:23 Oxygen Flow Rate (L/min) 3 Oxygen Delivery Method Nasal Cannula Weight: 112.5 kg Body Mass Index (BMI) 33.6 Intake and Output for Last 24 Hours 10/13/17 10/14/17 10/15/17 23:59 23:59 23:59 Intake Total 350 / 350 340 / 340 Balance 350 / 350 340 / 340 Microbiology Past 72 Hours 10/14/17 15:50 Respiratory Panel (PCR) - Final Mucosa - Nose POC Glucose 10/15/17 10/14/17 10/14/17 06:06 21:52 16:44 POC Glucose 256 H 422 H 310 H 10/14/17 11:18 POC Glucose 220 H Medical Necessity - Tobacco Use Smoking Status: Former smoker Assessment/Plan 1. Acute on chronic COPD exacerbation-chest x-ray on admission with no acute abnormality. Afebrile. No leukocytosis. Albuterol and DuoNeb aerosols. IV Solu-Medrol. Switch to oral prednisone tomorrow. Zithromax 250 mg p.o. daily. Respiratory panel negative. Recommend outpatient follow-up with pulmonary medicine. Patient wishes to follow-up with Dr. Vasquez or Dr. Beltran at discharge. Anticipate discharge tomorrow. 2. Acute hypoxia on chronic hypoxic respiratory failure-secondary to #1. Has oxygen available at home which he wears as needed. Continue supplemental oxygen to maintain O2 at or above 90%. 3. Type 2 diabetes mellitus-continue home oral regimen. Sliding scale insulin increased. Accu-Cheks before meals at bedtime. 4. CAD status post stents X2 in 2004-continue aspirin, statin, Plavix. 5. History of CVA-continue aspirin, statin, Plavix. 6. Obstructive sleep apnea-continue CPAP at bedtime. 7. History of DVT-previously in 2013. Not on further oral anticoagulation. 8. History of upper GI bleed-continue PPI. 9. Hypertension-stable, continue home regimen including hydrochlorothiazide, Imdur, lisinopril. 10. Hyperlipidemia-continue statin. 11. BPH-continue home Flomax, Proscar regimen. 12. GERD-continue PPI. 13. Obesity-encouraged diet and lifestyle modifications. DVT prophylaxis-heparin subcu. This patient was seen by ANYA Boyer under the supervision of Dr. Valdez.
[2017-10-15 11:36] LABS: Bedside Glucose 278 mg/dL (70-110)
--- NOTE | 2017-10-15 11:50 | PCM.DC ---
- Discharge Diagnoses Current Active Problems: Current Active and Chronic Problems GERD (gastroesophageal reflux disease) (Chronic) You will use the following diet at home:: Calorie/Carbohydrate Controlled (specify 1200, 1400, etc) Discharge Activity: Return to Normal Activity Call your doctor if you observe: Shortness of breath, Dizziness, Fainting spells, Chest pain Allergies/Adverse Reactions: Allergies No Known Allergies Allergy (Verified 10/14/17 08:29) Medications to take at Discharge Hydrochlorothiazide [Hctz] 25 mg PO DAILY 03/19/14 Lisinopril [Zestril] 20 mg PO BID 03/19/14 Tamsulosin HCl [Flomax] 0.4 mg PO DAILY 03/19/14 Amitriptyline HCl 10 mg PO QHS PRN 03/22/14 Isosorbide Mononitrate [Imdur] 60 mg PO DAILY 03/22/14 Albuterol Inhaler [Ventolin Hfa] 2 puff INHALATION Q2H PRN PRN #1 03/24/14 Pantoprazole Sodium [Protonix] 40 mg PO DAILY #30 tablet 03/24/14 Metformin HCl [Glucophage] 500 mg PO BID 12/24/14 Atorvastatin Calcium [Lipitor] 80 mg PO QHS #30 tablet 03/10/15 Hyoscyamine Sulfate 0.125 mg SL BID PRN PRN 12/18/16 Symbicort 160-4.5 Mcg Inhaler 1 puff PO DAILY 12/18/16 Ascorbic Acid [Vitamin C] 500 mg PO DAILY 07/03/17 Aspirin [Aspirin, Baby] 81 mg PO QHS 07/03/17 Cinnamon Bark [Cinnamon] 1,000 mg PO DAILY 07/03/17 Finasteride [Proscar] 5 mg PO DAILY 07/03/17 Fish Oil/Dha/Epa [Fish Oil 1,200 mg Fish Oil] 1 each PO DAILY 07/03/17 Metoprolol Tartrate 25 mg PO BID 07/03/17 Ranitidine [Zantac] 150 mg PO BID 07/03/17 Clopidogrel Bisulfate [Plavix] 75 mg PO DAILY 10/14/17 Glucosamine/MSM/Chondroitin A [Glucosamine Chondroit MSM Tab] 1 each PO DAILY 10/14/17 Iron 10/14/17 Multivitamin [Multiple Vitamins] 1 each PO DAILY 10/14/17 Zolpidem Tartrate [Ambien] 10 mg PO QHS 10/14/17 Albuterol Aerosols [Ventolin Aerosols] 2.5 mg INHALATION Q4H PRN #25 vial 10/15/17 Ipratropium/Albuterol Sulfate [Duoneb] 3 ml INHALATION Q6H.RT #90 ampul.neb 10/15/17 Prednisone See Taper PO DAILY #48 tab 10/15/17 The following prescriptions were given: Albuterol Aerosols [Ventolin Aerosols] 2.5 mg INHALATION Q4H PRN #25 vial Ipratropium/Albuterol Sulfate [Duoneb] 3 ml INHALATION Q6H.RT #90 ampul.neb Prednisone See Taper PO DAILY #48 tab Primary Care Physician: Ge Martinez MD [Primary Care Provider] - Please follow up with your Primary Care Physician in: 1 Week Please Follow Up With: Dr. Beltran or Dr. Vasquez When: Please make appt prior to discharge, soonest availability. Pt prefers 1pm. Proposed Discharge Date: 10/15/17
--- NOTE | 2017-10-15 11:51 | PCM.WORK.EX ---
Work/School Excuse Work/School Excuse for:: Patient Please excuse this person from:: Work From: 10/14/17 through: 10/19/17
--- NOTE | 2017-10-15 11:55 | PCM.DC.SUM ---
Discharge Date and Diagnosis Date of Admission: 10/14/17 Date of Discharge: 10/15/17 - Primary Discharge Diagnosis 1. Acute on chronic COPD exacerbation 2. Acute hypoxia on chronic hypoxic respiratory failure 3. Type 2 diabetes mellitus 4. CAD status post stents ?2 in 2004 5. History of CVA 6. Obstructive sleep apnea 7. History of DVT 8. History of upper GI bleed 9. Hypertension 10. Hyperlipidemia 11. BPH 12. GERD 13. Obesity - Secondary Discharge Diagnosis Chronic Problems GERD (gastroesophageal reflux disease) (Chronic) Diabetes mellitus type 2 in obese (Chronic) Hyperlipidemia (Chronic) Hypertension (Chronic) Benign prostatic hypertrophy (Chronic) Sleep apnea (Chronic) Coronary atherosclerosis of [place] coronary vessel (Chronic) Status post 2 stents in 2004 COPD (chronic obstructive pulmonary disease) (Chronic) History of PTCA (Chronic) History of CVA (cerebrovascular accident) (Chronic) AV block, [place] 1 (Chronic) Hospital Course and Treatment Imaging Results: Diagnostic Data Chest X-Ray 10/14/17 09:00 IMPRESSION: No acute abnormality is seen. Electronically Signed: Bertin Kirk MD at 9:44 EDT Tel [phone], Service support , Operations: None Procedures: None Summary of Care Provided: The patient is a 67 year old M admitted 10/14/2017 due to shortness of breath. Patient's past medical history includes COPD, type 2 diabetes mellitus, hyperlipidemia, hypertension, BPH, obstructive sleep apnea on CPAP, CAD status post stent ?2, history of CVA, history of DVT, history of AV block, Mob[place] 1. 1. Acute on chronic COPD exacerbation-chest x-ray on admission with no acute abnormality. Afebrile. No leukocytosis. Patient received IV Solu-Medrol during admission and will transition to prednisone taper at discharge. Continue home albuterol and DuoNeb aerosols. Patient has nebulizer available at home. Continue home oxygen supplementation to maintain O2 at or above 90%. Do not feel further antibiotic therapy is necessary at discharge. Respiratory panel negative. Patient will follow-up with pulmonary medicine at discharge. He has not recently seen a cmm programmer. Appointment will be made prior to discharge with the soonest available time. 2. Acute hypoxia on chronic hypoxic respiratory failure-secondary to #1. Has oxygen available at home which he wears as needed. Continue supplemental oxygen to maintain O2 at or above 90%. 3. Type 2 diabetes mellitus-continue home oral regimen. 4. CAD status post stents X2 in 2004-continue aspirin, statin, Plavix. 5. History of CVA-continue aspirin, statin, Plavix. 6. Obstructive sleep apnea-continue CPAP at bedtime. 7. History of DVT-previously in 2013. Not on further oral anticoagulation. 8. History of upper GI bleed-continue PPI. 9. Hypertension-stable, continue home regimen including hydrochlorothiazide, Imdur, lisinopril. 10. Hyperlipidemia-continue statin. 11. BPH-continue home Flomax, Proscar regimen. 12. GERD-continue PPI. 13. Obesity-encouraged diet and lifestyle modifications. General: Alert, Oriented x3, Cooperative HEENT: Atraumatic, PERRLA, EOMI, Normocephalic Neck: Supple, No JVD, Negative Carotid Bruits Lungs: Diminished, Wheezes Cardiovascular: Regular rate, Regular Rhythm, Normal S1, Normal S2, No murmurs Abdomen: Bowel Sounds Present, Soft, Non Tender, Non-Distended, Obese Extremities: No clubbing, No cyanosis, No edema, Capillary Refill Less than 3 Seconds Skin: No rashes, No breakdown Musculoskeletal: No Tenderness to Palpation of Joints or Extremities Neurological: Cranial nerves II-XII grossly intact, Neuro grossly intact Psych/Mental Status: Normal Affect, Appropriate Patient seen exam prior to discharge. Physical assessment as an above. Patient stable for discharge home with the follow-up her conditions as noted above. This patient was seen by ANYA Boyer under the supervision of Dr. Valdez. Discharge Diet: Low fat/ Low Cholesterol, Carb Control Diet Discharge Activity: Return to Normal Activity Call your doctor if you observe: Shortness of breath, Dizziness, Fainting spells, Chest pain Home Medications: Medications to take at Discharge Hydrochlorothiazide [Hctz] 25 mg PO DAILY 03/19/14 Lisinopril [Zestril] 20 mg PO BID 03/19/14 Tamsulosin HCl [Flomax] 0.4 mg PO DAILY 03/19/14 Amitriptyline HCl 10 mg PO QHS PRN 03/22/14 Isosorbide Mononitrate [Imdur] 60 mg PO DAILY 03/22/14 Albuterol Inhaler [Ventolin Hfa] 2 puff INHALATION Q2H PRN PRN #1 03/24/14 Pantoprazole Sodium [Protonix] 40 mg PO DAILY #30 tablet 03/24/14 Metformin HCl [Glucophage] 500 mg PO BID 12/24/14 Atorvastatin Calcium [Lipitor] 80 mg PO QHS #30 tablet 03/10/15 Hyoscyamine Sulfate 0.125 mg SL BID PRN PRN 12/18/16 Symbicort 160-4.5 Mcg Inhaler 1 puff PO DAILY 12/18/16 Ascorbic Acid [Vitamin C] 500 mg PO DAILY 07/03/17 Aspirin [Aspirin, Baby] 81 mg PO QHS 07/03/17 Cinnamon Bark [Cinnamon] 1,000 mg PO DAILY 07/03/17 Finasteride [Proscar] 5 mg PO DAILY 07/03/17 Fish Oil/Dha/Epa [Fish Oil 1,200 mg Fish Oil] 1 each PO DAILY 07/03/17 Metoprolol Tartrate 25 mg PO BID 07/03/17 Ranitidine [Zantac] 150 mg PO BID 07/03/17 Clopidogrel Bisulfate [Plavix] 75 mg PO DAILY 10/14/17 Glucosamine/MSM/Chondroitin A [Glucosamine Chondroit MSM Tab] 1 each PO DAILY 10/14/17 Iron 10/14/17 Multivitamin [Multiple Vitamins] 1 each PO DAILY 10/14/17 Zolpidem Tartrate [Ambien] 10 mg PO QHS 10/14/17 Albuterol Aerosols [Ventolin Aerosols] 2.5 mg INHALATION Q4H PRN #25 vial 10/15/17 Ipratropium/Albuterol Sulfate [Duoneb] 3 ml INHALATION Q6H.RT #90 ampul.neb 10/15/17 Prednisone See Taper PO DAILY #48 tab 10/15/17 Following Prescrptions Were Given to Patient: Albuterol Aerosols [Ventolin Aerosols] 2.5 mg INHALATION Q4H PRN #25 vial Ipratropium/Albuterol Sulfate [Duoneb] 3 ml INHALATION Q6H.RT #90 ampul.neb Prednisone See Taper PO DAILY #48 tab Primary Care Physician: Ge Martinez MD [Primary Care Provider] - Please follow up with your Primary Care Physician in: 1 Week Please Follow Up With: Dr. Beltran or Dr. Vasquez When: Please make appt prior to discharge, soonest availability. Pt prefers 1pm. Disposition: Home Minutes spent on discharge:: 35 Patient Condition:: Stable Medical Necessity - Tobacco Use Smoking Status: Former smoker Meaningful Use Info Meaningful Use Diagnoses (Choose all that apply): None applicable
--- NOTE | 2017-10-15 12:00 | DS.PCM_ITS ---
Discharge Date and Diagnosis Date of Admission: 10/14/17 Date of Discharge: 10/15/17 - Primary Discharge Diagnosis 1. Acute on chronic COPD exacerbation 2. Acute hypoxia on chronic hypoxic respiratory failure 3. Type 2 diabetes mellitus 4. CAD status post stents ?2 in 2004 5. History of CVA 6. Obstructive sleep apnea 7. History of DVT 8. History of upper GI bleed 9. Hypertension 10. Hyperlipidemia 11. BPH 12. GERD 13. Obesity - Secondary Discharge Diagnosis Chronic Problems GERD (gastroesophageal reflux disease) (Chronic) Diabetes mellitus type 2 in obese (Chronic) Hyperlipidemia (Chronic) Hypertension (Chronic) Benign prostatic hypertrophy (Chronic) Sleep apnea (Chronic) Coronary atherosclerosis of [place] coronary vessel (Chronic) Status post 2 stents in 2004 COPD (chronic obstructive pulmonary disease) (Chronic) History of PTCA (Chronic) History of CVA (cerebrovascular accident) (Chronic) AV block, Mobitz 1 (Chronic) Hospital Course and Treatment Imaging Results: Diagnostic Data Chest X-Ray 10/14/17 09:00 IMPRESSION: No acute abnormality is seen. Electronically Signed: Bertin Kirk MD at 9:44 EDT Tel [phone], Service support , Operations: None Procedures: None Summary of Care Provided: The patient is a 67 year old M admitted 10/14/2017 due to shortness of breath. Patient's past medical history includes COPD, type 2 diabetes mellitus, hyperlipidemia, hypertension, BPH, obstructive sleep apnea on CPAP, CAD status post stent ?2, history of CVA, history of DVT, history of AV block, Mobitz 1. 1. Acute on chronic COPD exacerbation-chest x-ray on admission with no acute abnormality. Afebrile. No leukocytosis. Patient received IV Solu-Medrol during admission and will transition to prednisone taper at discharge. Continue home albuterol and DuoNeb aerosols. Patient has nebulizer available at home. Continue home oxygen supplementation to maintain O2 at or above 90%. Do not feel further antibiotic therapy is necessary at discharge. Respiratory panel negative. Patient will follow-up with pulmonary medicine at discharge. He has not recently seen a charge nurse. Appointment will be made prior to discharge with the soonest available time. 2. Acute hypoxia on chronic hypoxic respiratory failure-secondary to #1. Has oxygen available at home which he wears as needed. Continue supplemental oxygen to maintain O2 at or above 90%. 3. Type 2 diabetes mellitus-continue home oral regimen. 4. CAD status post stents X2 in 2004-continue aspirin, statin, Plavix. 5. History of CVA-continue aspirin, statin, Plavix. 6. Obstructive sleep apnea-continue CPAP at bedtime. 7. History of DVT-previously in 2013. Not on further oral anticoagulation. 8. History of upper GI bleed-continue PPI. 9. Hypertension-stable, continue home regimen including hydrochlorothiazide, Imdur, lisinopril. 10. Hyperlipidemia-continue statin. 11. BPH-continue home Flomax, Proscar regimen. 12. GERD-continue PPI. 13. Obesity-encouraged diet and lifestyle modifications. General: Alert, Oriented x3, Cooperative HEENT: Atraumatic, PERRLA, EOMI, Normocephalic Neck: Supple, No JVD, Negative Carotid Bruits Lungs: Diminished, Wheezes Cardiovascular: Regular rate, Regular Rhythm, Normal S1, Normal S2, No murmurs Abdomen: Bowel Sounds Present, Soft, Non Tender, Non-Distended, Obese Extremities: No clubbing, No cyanosis, No edema, Capillary Refill Less than 3 Seconds Skin: No rashes, No breakdown Musculoskeletal: No Tenderness to Palpation of Joints or Extremities Neurological: Cranial nerves II-XII grossly intact, Neuro grossly intact Psych/Mental Status: Normal Affect, Appropriate Patient seen exam prior to discharge. Physical assessment as an above. Patient stable for discharge home with the follow-up her conditions as noted above. This patient was seen by AYNA Boyer under the supervision of Dr. Valdez. Discharge Diet: Low fat/ Low Cholesterol, Carb Control Diet Discharge Activity: Return to Normal Activity Call your doctor if you observe: Shortness of breath, Dizziness, Fainting spells , Chest pain Home Medications: Medications to take at Discharge Hydrochlorothiazide [Hctz] 25 mg PO DAILY 03/19/14 Lisinopril [Zestril] 20 mg PO BID 03/19/14 Tamsulosin HCl [Flomax] 0.4 mg PO DAILY 03/19/14 Amitriptyline HCl 10 mg PO QHS PRN 03/22/14 Isosorbide Mononitrate [Imdur] 60 mg PO DAILY 03/22/14 Albuterol Inhaler [Ventolin Hfa] 2 puff INHALATION Q2H PRN PRN #1 03/24/14 Pantoprazole Sodium [Protonix] 40 mg PO DAILY #30 tablet 03/24/14 Metformin HCl [Glucophage] 500 mg PO BID 12/24/14 Atorvastatin Calcium [Lipitor] 80 mg PO QHS #30 tablet 03/10/15 Hyoscyamine Sulfate 0.125 mg SL BID PRN PRN 12/18/16 Symbicort 160-4.5 Mcg Inhaler 1 puff PO DAILY 12/18/16 Ascorbic Acid [Vitamin C] 500 mg PO DAILY 07/03/17 Aspirin [Aspirin, Baby] 81 mg PO QHS 07/03/17 Cinnamon Bark [Cinnamon] 1,000 mg PO DAILY 07/03/17 Finasteride [Proscar] 5 mg PO DAILY 07/03/17 Fish Oil/Dha/Epa [Fish Oil 1,200 mg Fish Oil] 1 each PO DAILY 07/03/17 Metoprolol Tartrate 25 mg PO BID 07/03/17 Ranitidine [Zantac] 150 mg PO BID 07/03/17 Clopidogrel Bisulfate [Plavix] 75 mg PO DAILY 10/14/17 Glucosamine/MSM/Chondroitin A [Glucosamine Chondroit MSM Tab] 1 each PO DAILY Iron 10/14/17 Multivitamin [Multiple Vitamins] 1 each PO DAILY 10/14/17 Zolpidem Tartrate [Ambien] 10 mg PO QHS 10/14/17 Albuterol Aerosols [Ventolin Aerosols] 2.5 mg INHALATION Q4H PRN #25 vial Ipratropium/Albuterol Sulfate [Duoneb] 3 ml INHALATION Q6H.RT #90 ampul.neb Prednisone See Taper PO DAILY #48 tab 10/15/17 Following Prescrptions Were Given to Patient: Albuterol Aerosols [Ventolin Aerosols] 2.5 mg INHALATION Q4H PRN #25 vial Ipratropium/Albuterol Sulfate [Duoneb] 3 ml INHALATION Q6H.RT #90 ampul.neb Prednisone See Taper PO DAILY #48 tab Primary Care Physician: Ge Martinez MD [Primary Care Provider] - Please follow up with your Primary Care Physician in: 1 Week Please Follow Up With: Dr. Beltran or Dr. Vasquez When: Please make appt prior to discharge, soonest availability. Pt prefers 1pm. Disposition: Home Minutes spent on discharge:: 35 Patient Condition:: Stable Medical Necessity - Tobacco Use Smoking Status: Former smoker Meaningful Use Info Meaningful Use Diagnoses (Choose all that apply): None applicable
== END 2017-10-15 15:33 | disposition home or self-care (01) ==
LOC: ED 09:27 → MS2 10:20
PROVIDERS: Admitting Provider Internal Medicine; Emergency Provider Emergency Medicine; Family Provider Family Medicine; PCP Family Medicine; Visit Provider Internal Medicine
DX: J44.1 Chronic obstructive pulmonary disease with (acute) exacerbation (principal); J96.21 Acute and chronic respiratory failure with hypoxia; I25.10 Atherosclerotic heart disease of native coronary artery without angina pectoris; E11.9 Type 2 diabetes mellitus without complications; I10 Essential (primary) hypertension; E78.5 Hyperlipidemia, unspecified; G47.33 Obstructive sleep apnea (adult) (pediatric); N40.0 Benign prostatic hyperplasia without lower urinary tract symptoms; K21.9 Gastro-esophageal reflux disease without esophagitis; E66.9 Obesity, unspecified; Z68.33 Body mass index [BMI] 33.0-33.9, adult; Z71.3 Dietary counseling and surveillance; Z87.891 Personal history of nicotine dependence; Z99.81 Dependence on supplemental oxygen; Z86.73 Personal history of transient ischemic attack (TIA), and cerebral infarction without residual deficits; Z95.5 Presence of coronary angioplasty implant and graft; Z86.718 Personal history of other venous thrombosis and embolism; I25.2 Old myocardial infarction
CPT/HCPCS: 36415; 71045; 80048; 82962; 83605; 84484; 85025; 87040; 87633; 93005; 94640; 96361; 96372; 96374; 96376; 99218; 99283; 99406; A4216; G0378

== ENCOUNTER 2017-10-25 09:34 | Emergency (ER) | payer MEDICARE, BC, SELFPAY ==
[2017-10-25 09:35] VITALS: BP 135/80; PULSE 61; RESP 15; TEMP 36.8; O2SAT 98; BMI 33.6
--- NOTE | 2017-10-25 09:44 | VDLE_ITS ---
Reason For Study: LEG PAIN Procedure LEFT Exam performed portable in ED. GSV is normal. A preliminary report was called and/or faxed CFV is compressible, spontaneous, phasic, to Dr. Prieto. competent, and demonstrates normal augmentation. FV is compressible, spontaneous, phasic, competent and demonstrates normal augmentation. POP V is compressible, spontaneous, phasic, competent and demonstrates normal augmentation. T/P Trunk is compressible. PTV is compressible. LT PerV is compressible. Interpretation Summary Deep veins of the left lower extremity are patent and compressible segmentally. There is no evidence of left lower extremity deep vein thrombosis. Valvular competence appears intact within the proximal deep venous system on the left . The left greater saphenous vein appears patent and compressible segmentally. Ordering Physician: Adam Prieto Referring Physician: Delroy Martinez Performed By: Cindy Anderson RVT
[2017-10-25 09:50] VITALS: BP 139/87; PULSE 89; RESP 24; O2SAT 99
--- NOTE | 2017-10-25 09:50 | ED.RN ---
THIS NURSE REVIEWED D/C INSTRUCTIONS WITH PT. PT VERBALIZED UNDERSTANDING OF INSTRUCTIONS. PT DENIES FURTHER NEEDS OR QUESTIONS AT THIS TIME. PT AMBULATES FROM ROOM ON OWN WITHOUT ASSISTANCE FROM STAFF
--- NOTE | 2017-10-25 10:13 | ED.VISSUMM ---
- ER Visit Summary Date of Service: 10/25/17 Chief Complaint: [Pain and left leg] History of Present Illness: The patient is a 67 M [presents the emergency department with pain in his left leg that started today. Patient states that he kind of woke up with that and became worse as he was mowing. Patient describes it as lateral left thigh. Patient concerned because he has a history of DVT in the right leg ?3. Patient denies any chest pain or shortness of breath. Patient denies any trauma to his leg. Patient denies numbness or tingling of the leg. Patient does have a history of chronic back pain issues and gets injections in his back with pain management. Patient is currently on Plavix.] Physical Examination: [HEENT-PERRLA, EOMI. Cranial nerves II through XII grossly intact. TMs clear. Mucous membranes moist. No adenopathy. Cardiovascular-regular rate and rhythm without murmur or ectopy Lungs-clear to auscultation, chest wall stable without crepitus or subcu emphysema Abdomen-normoactive bowel sounds, soft, nontender, no rebound or rigidity, no peritoneal signs. Extremities-intact ?4, normal range of motion, normal pulses, atraumatic]. Left leg-patient does have tenderness to palpation over the left lateral thigh that reproduces pain. There is no edema of the left lower extremity. Patient has normal pulses, femoral, popliteal, dorsal pedal and posterior tibial. Deep tendon reflexes are plus 2 out of 4 bilaterally at the patella and Achilles. Patient has normal L5 extension bilaterally. Patient has normal sensation to light touch. Negative straight leg raises. Test Results: [Venous duplex of the left lower extremity obtained showed no evidence of DVT.] Emergency Department Course and Treatment: [] Treatment Plan: [Patient will be given a prescription for [place] for pain]. I suspect pain may be strain versus sciatica. Disposition: [Discharged home in stable condition. Patient has appointment with primary care physician in 4 days.] Impression: [Left leg pain-etiology uncertain] This note was generated with [employer] dictation software. It may contain incorrect words, spelling, and punctuation that were not noted in review of the chart prior to signing ED Disposition - Plan for ED Patient: Chief Complaint: Lower Extremity Injury Referrals: Ge Martinez MD [Primary Care Provider] -
--- NOTE | 2017-10-25 10:15 | ED.DEP ---
ED Disposition - Plan for ED Patient: Chief Complaint: Lower Extremity Injury Instructions: ED Strain Muscle Ext Prescriptions: Hydrocodone/Acetaminophen [[place] 5-325 Tablet] 1 - 2 ea PO 4X/DAY PRN PRN 3 Days #12 tab PRN Reason: Pain Referrals: Ge Martinez MD [Primary Care Provider] - 3-5 Days
== END 2017-10-25 09:50 | disposition home or self-care (01) ==
LOC: ED 10:07
PROVIDERS: Emergency Provider Emergency Medicine; Family Provider Family Medicine; PCP Family Medicine
DX: M79.605 Pain in left leg (principal); Z86.718 Personal history of other venous thrombosis and embolism; G89.29 Other chronic pain; M54.9 Dorsalgia, unspecified
CPT/HCPCS: 93971; 99282

== ENCOUNTER 2017-12-18 11:04 | Emergency (ER) | payer MEDICARE, BC, SELFPAY ==
[2017-12-18 11:05] VITALS: BP 142/73; PULSE 74; RESP 18; TEMP 36.7; O2SAT 95; BMI 32.5
--- NOTE | 2017-12-18 11:16 | VDLE_ITS ---
Reason For Study: LEG PAIN RIGHT LEFT GSV is normal. CFV is compressible, spontaneous, phasic, CFV is compressible, spontaneous, phasic, competent, and demonstrates normal competent and demonstrates normal augmentation. augmentation. FV is compressible, spontaneous, phasic, competent and demonstrates normal augmentation. POP V is compressible, spontaneous, phasic, competent and demonstrates normal augmentation. T/P Trunk is compressible. PTV is compressible. RT PerV is compressible. Procedure Exam performed portable in ED. A preliminary report was called and/or faxed to ED nurse. Interpretation Summary Deep veins of the right lower extremity are patent and compressible segmentally. There is no evidence of right lower extremity deep vein thrombosis. Valvular competence appears intact within the proximal deep venous system on the right . The right greater saphenous vein appears patent and compressible segmentally. Ordering Physician: Judd Camacho Referring Physician: Delroy Martinez Performed By: Cindy Anderson RVT
--- NOTE | 2017-12-18 11:25 | ED.VISSUMM ---
- ER Visit Summary Date of Service: 12/18/17 Chief Complaint: Right lower extremity pain History of Present Illness: The patient is a 67 M presents to the emergency department with right lower extremity pain and swelling. Patient has a history of DVT and states that this feels similar. He had prostate surgery done at [facility] a few days ago. He states since then, he is noted some pain in his posterior right thigh. He denies any chest pain. He does admit to some shortness of breath, but states that it is because of his COPD. He has been coughing and wheezing. He denies any fevers or chills. He is not on any anticoagulants aside from Plavix at this time. Physical Examination: Vital signs reviewed General: Well-nourished, well-developed Head: Normocephalic, atraumatic Eyes: Pupils equal and reactive, extraocular muscles intact Neck, supple, no lymphadenopathy Heart: Regular rate and rhythm Respiratory: No distress, scant wheeze bilaterally Abdomen: Soft, nontender, nondistended, no peritoneal signs Back: Nontender Extremities: Mild tenderness right posterior thigh, normal pulses, no edema, no cords Skin: Normal color no rash Neuro: Alert and oriented, no focal or lateralizing deficits Test Results: [] Emergency Department Course and Treatment: The patient did have wheezing in all parekh, but was not hypoxic or tachypneic. He has had scant cough. He was given breathing treatments with improvement of his aeration. The patient did undergo general anesthesia with his history of lung disease, I do feel that the most prudent thing would be to cover him as a COPD exacerbation. He has normal pulses of the lower extremities. He underwent ultrasound which showed no evidence of DVT. He is resting comfortably. At this time, I am unsure of the acute etiology of his thigh pain, but I do not suspect a dangerous process. There is no evidence of acute vascular crisis. His compartments are soft. The patient will be treated with doxycycline and prednisone for COPD exacerbation. He will be discharged home. Treatment Plan: [] Disposition: Discharge Impression: 1. Right thigh pain 2. COPD exacerbation This note was generated with [employer] software. It may contain incorrect words, spelling, and punctuation that were not noted in review of the chart prior to signing ED Disposition - Plan for ED Patient: Chief Complaint: Lower Extremity Injury Instructions: ED COPD Flare Prescriptions: Prednisone 10 mg PO UD #33 tab Doxycycline Monohydrate 100 mg PO BID #20 cap Referrals: Ge Martinez MD [Primary Care Provider] -
[2017-12-18 11:38] VITALS: PULSE 80; RESP 18
[2017-12-18] MEDS: Albuterol 2.5 MG/3 ML VIAL.NEB. INHALATION (11:39)
[2017-12-18] MEDS: Ipratropium/Albuterol Sulfate 3 ML AMPUL.NEB INHALATION (11:39)
[2017-12-18 12:21] VITALS: BP 97/65; PULSE 85; RESP 18; O2SAT 94
== END 2017-12-18 12:21 | disposition home or self-care (01) ==
LOC: ED 11:57
PROVIDERS: Emergency Provider Emergency Medicine; Family Provider Family Medicine; PCP Family Medicine
DX: M79.651 Pain in right thigh (principal); J44.1 Chronic obstructive pulmonary disease with (acute) exacerbation; I25.10 Atherosclerotic heart disease of native coronary artery without angina pectoris; E11.9 Type 2 diabetes mellitus without complications; I10 Essential (primary) hypertension; Z86.73 Personal history of transient ischemic attack (TIA), and cerebral infarction without residual deficits; Z87.891 Personal history of nicotine dependence; Z86.718 Personal history of other venous thrombosis and embolism
CPT/HCPCS: 93971; 94640; 99283

== ENCOUNTER 2018-06-03 10:35 | Emergency (ER) | payer MEDICARE, BC, SELFPAY ==
[2018-06-03 10:35] VITALS: BMI 35.5
[2018-06-03 10:36] VITALS: BP 121/76; PULSE 92; RESP 20; TEMP 36.5; O2SAT 98; BMI 32.5
--- NOTE | 2018-06-03 10:51 | EKG12_ITS ---
Test Reason : SOB Blood Pressure : / mmHG Vent. Rate : 092 BPM Atrial Rate : 092 BPM P-R Int : 164 ms QRS Dur : 086 ms QT Int : 380 ms P-R-T Axes : 026 036 047 degrees QTc Int : 469 ms Normal sinus rhythm Normal ECG Confirmed by TOMAS SHETH, MADALYN ([id number]), editorial project manager LUCIA MORAN ([id number]) on 06/05/2018 2:36:06 PM Referred By: CORTES Confirmed By:MADALYN MARIN MD
--- NOTE | 2018-06-03 10:52 | RAD_ITS ---
STUDY: X-RAY CHEST REASON FOR EXAM: Male, 68 years old. Shortness of breath/dyspnea. TECHNIQUE: PA and lateral views of the chest. COMPARISON: Comparison is made with prior study dated October 14, 2017. FINDINGS: Mild increased linear markings at the left lung base suggestive of atelectasis. There is no demonstrated pleural abnormality. Normal size heart. Normal mediastinum and mathew. Normal visualized pulmonary arteries. Normal visualized aortic arch and descending thoracic aorta. There are diffuse degenerative changes of the visualized thoracic spine. Normal visualized ribs, clavicles, and shoulders. Moderate sized hiatal hernia. RAD/Chest PA and Lateral IMPRESSION: Mild increased markings at the left lung base suggestive of atelectasis. Moderate sized hiatal hernia. Electronically Signed: Bertin Kirk MD at 11:55 EST Tel [phone], Service support ,
--- NOTE | 2018-06-03 10:53 | ED.VISSUMM ---
- ER Visit Summary Date of Service: 06/03/18 Chief Complaint: Shortness of breath History of Present Illness: The patient is a 68 M presents with shortness of breath that has been getting worse over the past 2 days. Patient states he has a history of COPD and has been using his home aerosol machine with minimal relief. Patient states he is coughing up some yellow sputum. Patient also admits to sore throat from coughing. Patient also admits to some rhinorrhea. Patient denies any fevers or chills. Patient denies any chest pain. Patient denies any nausea or vomiting. Physical Examination: Vital signs are stable. Patient is afebrile. Patient is in no acute distress. Oral mucosa is pink and moist. Neck is supple. Trachea is midline. There is no JVD noted. Heart was regular rate and rhythm. Lungs showed diffuse expiratory wheezing. There is good respiratory effort noted. Abdomen is soft and nontender. Cranial nerves II through XII are intact. There are no focal motor or sensory deficits noted. The remaining physical exam is within normal limits. Test Results: PA and lateral chest x-ray was obtained. There is some atelectasis in the left base but no acute infiltrate. Emergency Department Course and Treatment: Patient was given a DuoNeb aerosol. Patient still had some wheezing. Patient was given a repeat albuterol aerosol. Patient was given a dose of prednisone here. Patient was feeling better on reevaluation. Patient was given a prescription for prednisone. Patient was instructed to continue his inhalers and aerosols as prescribed. 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 Patient understood and was agreeable with the plan. All questions were answered. Disposition: Discharged home Impression: COPD exacerbation This note was generated with [employer] dictation software. It may contain incorrect words, spelling, and punctuation that were not noted in review of the chart prior to signing ED Disposition - Plan for ED Patient: Disposition: Home or Assisted Living Chief Complaint: Shortness of Breath Diagnosis: COPD (chronic obstructive pulmonary disease) Instructions: ED COPD Flare Prescriptions: Prednisone [Deltasone] 60 mg PO DAILY #15 tab Referrals: Ge Martinez MD [Primary Care Provider] -
--- NOTE | 2018-06-03 10:57 | ED.DCSUM_ITS ---
- ER Visit Summary Date of Service: 06/03/18 Chief Complaint: Shortness of breath History of Present Illness: The patient is a 68 M presents with shortness of breath that has been getting worse over the past 2 days. Patient states he has a history of COPD and has been using his home aerosol machine with minimal relief. Patient states he is coughing up some yellow sputum. Patient also admits to sore throat from coughing. Patient also admits to some rhinorrhea. Patient denies any fevers or chills. Patient denies any chest pain. Patient denies any nausea or vomiting. Physical Examination: Vital signs are stable. Patient is afebrile. Patient is in no acute distress. Oral mucosa is pink and moist. Neck is supple. Trachea is midline. There is no JVD noted. Heart was regular rate and rhythm. Lungs showed diffuse expiratory wheezing. There is good respiratory effort noted. Abdomen is soft and nontender. Cranial nerves II through XII are intact. There are no focal motor or sensory deficits noted. The remaining physical exam is within normal limits. Test Results: PA and lateral chest x-ray was obtained. There is some atelectasis in the left base but no acute infiltrate. Emergency Department Course and Treatment: Patient was given a DuoNeb aerosol. Patient still had some wheezing. Patient was given a repeat albuterol aerosol. Patient was given a dose of prednisone here. Patient was feeling better on reevaluation. Patient was given a prescription for prednisone. Patient was instructed to continue his inhalers and aerosols as prescribed. 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 Patient understood and was agreeable with the plan. All questions were answered. Disposition: Discharged home Impression: COPD exacerbation This note was generated with [employer] dictation software. It may contain incorrect words, spelling, and punctuation that were not noted in review of the chart prior to signing ED Disposition - Plan for ED Patient: Disposition: Home or Assisted Living Chief Complaint: Shortness of Breath Diagnosis: COPD (chronic obstructive pulmonary disease) Instructions: ED COPD Flare Prescriptions: Prednisone [Deltasone] 60 mg PO DAILY #15 tab Referrals: Ge Martinez MD [Primary Care Provider] -
[2018-06-03 11:10] VITALS: PULSE 94; RESP 15
[2018-06-03] MEDS: Ipratropium/Albuterol Sulfate 3 ML AMPUL.NEB INHALATION (11:10)
[2018-06-03 12:38] VITALS: BP 105/75; PULSE 89; RESP 15; O2SAT 96
[2018-06-03] MEDS: predniSONE 20 MG Tablet 60 MG PO (12:47)
[2018-06-03] MEDS: Albuterol 2.5 MG/3 ML VIAL.NEB. INHALATION (13:09)
[2018-06-03 13:10] VITALS: PULSE 94; RESP 22
[2018-06-03 13:58] VITALS: BP 113/64; PULSE 92; RESP 20; O2SAT 96
== END 2018-06-03 14:00 | disposition home or self-care (01) ==
PROVIDERS: Emergency Provider Emergency Medicine; Family Provider Family Medicine; PCP Family Medicine
DX: J44.1 Chronic obstructive pulmonary disease with (acute) exacerbation (principal); J98.11 Atelectasis; I25.10 Atherosclerotic heart disease of native coronary artery without angina pectoris; E11.9 Type 2 diabetes mellitus without complications; I25.2 Old myocardial infarction; Z86.73 Personal history of transient ischemic attack (TIA), and cerebral infarction without residual deficits; Z86.718 Personal history of other venous thrombosis and embolism
CPT/HCPCS: 71046; 93005; 94640; 99284; A4216

== ENCOUNTER 2018-07-22 21:34 | Inpatient (IN) | payer MEDICARE, BC, SELFPAY ==
[2018-07-22 21:36] VITALS: BP 124/74; PULSE 109; RESP 18; TEMP 36.9; O2SAT 95; BMI 33.2
--- NOTE | 2018-07-22 21:47 | EKG12_ITS ---
Test Reason : Blood Pressure : / mmHG Vent. Rate : 107 BPM Atrial Rate : 107 BPM P-R Int : 158 ms QRS Dur : 090 ms QT Int : 346 ms P-R-T Axes : 047 044 038 degrees QTc Int : 461 ms Sinus tachycardia Otherwise normal ECG Confirmed by CARLO SHETH, DIANE ([id number]), editorial specialist GORDY PIEDRA ([id number]) on 07/27/2018 5:10:30 PM Referred By: Eric Brar Confirmed By:DIANE MATOS MD
[2018-07-22] MEDS: Ondansetron 4 MG/2 ML Vial IV (21:56)
[2018-07-22] MEDS: Morphine 4 MG/ML Syringe IV (21:56)
[2018-07-22] MEDS: Ipratropium/Albuterol Sulfate 3 ML AMPUL.NEB INHALATION (21:57)
[2018-07-22] MEDS: Albuterol 2.5 MG/3 ML VIAL.NEB. INHALATION (21:57)
[2018-07-22 22:01] VITALS: PULSE 110; RESP 20
[2018-07-22 22:08] LABS: Absolute Lymphocyte Count 0.87 X10^3/ul (0.83-4.51); Absolute Neutrophil Count 5.8 X10^3/uL (2.0-7.7); Basophil# 0.04 X10^3/uL; Basophil% 0.5 % (0-1); Eosinophil# 0.74 X10^3/uL; Hematocrit 35.4 % (40-54); Hemoglobin 11.2 g/dl (13.0-16.5); Lymphocyte # 0.87 X10^3/ul (4.0); Lymphocyte % 10.6 % (19-41); Mean Corp Hgb Conc 31.6 g/gl (32-36); Mean Corpuscular Hgb 28.8 pg (27.0-32.0); Mean Platelet Vol. 9.3 fl (6.2-12.0); Monocyte# 0.74 X10^3/uL; Neutrophil # 5.78 X10^3/uL (2.7-7.7); Neutrophil % 70.7 % (47-70); Platelet Count 258 K/mm3 (150-450); RBC Distribution Width CV 13.4 % (11.6-14.6); RBC Distribution Width SD 44.1 fl (35.1-43.9); Red Blood Count 3.89 M/mm3 (4.6-6.2); White Blood Count 8.2 K/mm3 (4.4-11.0)
[2018-07-22 22:09] LABS: POSITIVE COUNT NO; POSITIVE DIFFERENTIAL NO; POSITIVE MORPHOLOGY NO
--- NOTE | 2018-07-22 22:10 | RAD_ITS ---
STUDY: X-RAY CHEST REASON FOR EXAM: Male, 68 years old. Shortness of breath. COPD. TECHNIQUE: Single AP portable view of the chest. COMPARISON: June 03, 2018. FINDINGS: There is stable left lower lung scarring or atelectasis. There is no demonstrated pleural abnormality. There is mild cardiac enlargement. There is large retrocardiac hiatal hernia Normal visualized pulmonary arteries. Normal visualized aortic arch and descending thoracic aorta. Normal visualized thoracic spine. Normal visualized ribs, clavicles, and shoulders. There is no demonstrated abnormality of the visualized soft tissue structures of the upper abdomen. RAD/Chest 1 View (Portable) IMPRESSION: Hiatal hernia. No focal infiltrate. Electronically Signed: Reymundo Martinez MD at 23:03 EST , Service support ,
[2018-07-22 22:12] VITALS: BP 130/67; PULSE 113; RESP 18; O2SAT 95
[2018-07-22] MEDS: MethylPREDNISolone 125 MG/2 ML Vial IV (22:13)
[2018-07-22] MEDS: 0.9% Normal Saline 1,000 ML 150 ML IV (22:20)
[2018-07-22 22:21] VITALS: O2SAT 95
[2018-07-22 22:25] LABS: Anion Gap 10 (5-15); BUN 17 mg/dL (7-18); BUN/Creat Ratio 18.8 RATIO (10-20); Calcium,Total 8.6 mg/dL (8.5-10.1); Chloride 98 mmol/L (98-107); Creatinine, Serum 0.91 mg/dL (0.70-1.30); EST Glomerular Filtration Rate 88 mL/min (>60); Est Glom Filt Rate - Afr Amer 107 mL/min (>60); Estimated Creatinine Clearance 84.09 ml/min; Glucose 173 mg/dL (74-106); Potassium 3.4 mmol/L (3.5-5.1); Sodium Level 135 mmol/L (136-145)
--- NOTE | 2018-07-22 22:34 | CT_ITS ---
STUDY: CTA CHEST REASON FOR EXAM: Male, 68 years old. Dyspnea, CHF, hypertension, RI, stents, COPD, torn ACL, axial and RADIATION DOSAGE (If Supplied By Facility): CTDIvol = ( 30.02 ) mGy, DLP = ( 838.14 ) mGycm TECHNIQUE: The examination was performed with the intravenous administration of Isovue 370 100ML IV. Post-processing of the angiographic images was performed, with multiplanar reformation and 3D reconstruction. Individualized dose optimization techniques were used for this CT. COMPARISON: CT chest 03/07/2015. Chest x-ray 07/22/2018. FINDINGS: Normal enhancement of the main pulmonary artery and right and left pulmonary arteries. Normal enhancement of the bilateral peripheral pulmonary arteries. There is no demonstrated pulmonary embolism. There is atherosclerotic tortuosity of the aortic arch and descending thoracic aorta. There is no demonstrated aortic dissection. Normal heart and pericardium. There are extensive calcifications of the coronary arteries. Normal mediastinum. Normal hilar regions. Normal visualized trachea and bronchi. The lungs are well expanded. Minimal pleural-based posterior medial left lower lobe opacification, new since previous exam with a nodularity of approximately 0.5 cm. Image 84-89 series 2. Normal pleura. Normal chest wall structures. There are degenerative changes of thoracic spine. There is a large hiatal hernia composed mostly of the fundus of the stomach. Hepatomegaly and hepatic steatosis. CT/CTA Chest W/WO Contrast IMPRESSION: No demonstrated pulmonary embolism, aneurysm, leak or arterial dissection. Atherosclerosis and extensive coronary artery disease. Small area of opacification posterior medial left lower lobe with nodularity. This is new since previous examination. Follow-up examination to assess for resolution of findings is recommended. Stable large hiatal hernia and other nonacute findings. Electronically Signed: Elisa Sánchez MD at 0:15 EST , Service support ,
--- NOTE | 2018-07-22 23:52 | ED.VISSUMM ---
- ER Visit Summary Date of Service: 07/22/18 Chief Complaint: [Shortness of breath] History of Present Illness: The patient is a 68 M [presents to the emergency department with complaint of shortness of breath that started yesterday. Patient states that he has stage IV COPD. Patient was admitted 1 month ago at [facility] for the same. Patient states that today he has had 3 or 4 severe episodes of difficulty breathing for which she used his nebulizer and felt like he was going to . Patient denies any chest pain. Patient states these symptoms are typical of his COPD exacerbations. He is not had subjective fever. Patient has had a cough with occasional yellow sputum production.] Patient tells me he had surgery on his left rotator cuff 1 week ago. Patient has a history of DVT. Patient currently on Plavix but not anticoagulation otherwise. Physical Examination: [HEENT-PERRLA, EOMI. Cranial nerves II through XII grossly intact. TMs clear. Mucous membranes moist. No adenopathy. Cardiovascular-regular rate and rhythm without murmur or ectopy Lungs-breath sounds bilaterally. Patient has expiratory wheezes bilaterally. Patient is tachypneic. There is no accessory muscle use or retractions. No significant conversational dyspnea. Abdomen-normoactive bowel sounds, soft, nontender, no rebound or rigidity, no peritoneal signs. Extremities-intact ?4, normal range of motion, normal pulses, atraumatic] Test Results: [EKG obtained arrival shows sinus tachycardia with a ventricular rate of 107 bpm. CBC with differential showed a normal white blood cell count of 8.2, hemoglobin 11, hematocrit 35, placed 258. Chemistries unremarkable. Troponin is less than 0.015. Chest x-ray showed nothing acute.] CTA of the chest was ordered to rule out PE given his recent surgery as well as tachycardia, history of DVT, and edematous lower extremities. Results of CTA are currently pending. Emergency Department Course and Treatment: [Patient was given DuoNeb aerosol followed by albuterol aerosol. Patient was given site Medrol and 25 mg IV.] Treatment Plan: [Patient will be admitted for aerosols and steroids.] Disposition: [Admit] Impression: [COPD exacerbation] This note was generated with [employer] dictation software. It may contain incorrect words, spelling, and punctuation that were not noted in review of the chart prior to signing ED Disposition - Plan for ED Patient: Referrals: Ge Martinez MD [Primary Care Provider] -
--- NOTE | 2018-07-22 23:55 | HP.PCM_ITS ---
Problem List (1) COPD with acute exacerbation Status: Chronic History of Present Illness Date of Admission: 07/23/18 Chief Complaint: shortness of breath The patient is a 68 year old M with a significant history of COPD, multiple DVT; UT status post coronary stent, diabetes mellitus and hypertension who presented with progressively worsening shortness of breath that started a few hours before his admission. Associated with symptoms is wheezing and nonproductive cough. Also he reports subjective fever and chills. Patient to use his nebulization multiple times without any real relief. Patient had a rotator cuff surgery on the . Because of the recent surgery emergency department doctor did a CTPA which was unremarkable for PE. The patient is a 68 year old M with a significant history of COPD, multiple DVT; UT status post coronary stent, diabetes mellitus and hypertension who presented with progressively worsening shortness of breath; wheezing is consistent with likely COPD exacerbation. Acute exacerbation of COPD Patient medical history of COPD and with sudden onset shortness of breath and wheezing. CXR independently reviewed confirms no acute cardiopulmonary process. Scheduled DuoNeb Albuterol as needed Solu-Medrol ordered Because of reported subjective fever and chills patient will be started on Levaquin. Monitor BMP. History of CAD ASA, Plavix, Lipitor Heart Failure Lasix continued Imdur and hydrochlorthiazide continued. HTN On admission his blood pressure was fairly stable. Imdur, HCTZ Diabetes mellitus Glucose was uncontrolled on admission. Home Lantus insulin, and glipizide as well as metformin. We will add correction scale insulin to his regimen. Recent rotator cuff surgery Patient in sling; continue PRN oxycodone ordered. DVT Prophylaxis Lovenox subcutaneous. Past Medical History Past Medical History (Chronic Problems): Chronic Problems GERD (gastroesophageal reflux disease) (Chronic) COPD with acute exacerbation (Chronic) Diabetes mellitus type 2 in obese (Chronic) Hyperlipidemia (Chronic) Hypertension (Chronic) Benign prostatic hypertrophy (Chronic) Sleep apnea (Chronic) Coronary atherosclerosis of [place] coronary vessel (Chronic) Status post 2 stents in 2004 COPD (chronic obstructive pulmonary disease) (Chronic) History of PTCA (Chronic) History of CVA (cerebrovascular accident) (Chronic) AV block, Mobitz 1 (Chronic) Allergies No Known Allergies Allergy (Verified 07/22/18 21:51) Home Medications: Ambulatory Orders Medication Instructions Recorded Hydrochlorothiazide [Hctz] 25 mg PO DAILY 10/18/14 Lisinopril [Zestril] 20 mg PO BID 03/19/14 Tamsulosin HCl [Flomax] 0.4 mg PO DAILY 03/19/14 Amitriptyline HCl 10 mg PO QHS PRN 03/22/14 Isosorbide Mononitrate [Imdur] 60 mg PO DAILY 03/22/14 Albuterol Inhaler [Ventolin Hfa] 2 puff INHALATION Q2H PRN PRN #1 03/24/14 Pantoprazole Sodium [Protonix] 40 mg PO DAILY #30 tablet 03/24/14 Metformin HCl [Glucophage] 1,000 mg PO BID 12/24/14 Hyoscyamine Sulfate 0.125 mg SL BID PRN PRN 12/18/16 Ascorbic Acid [Vitamin C] 500 mg PO DAILY 07/03/17 Aspirin [Aspirin, Baby] 81 mg PO QHS 07/03/17 Cinnamon Bark [Cinnamon] 1,000 mg PO DAILY 07/03/17 Finasteride [Proscar] 5 mg PO DAILY 07/03/17 Fish Oil/Dha/Epa [Fish Oil 1,200 1 each PO DAILY 07/03/17 mg Fish Oil] Metoprolol Tartrate 25 mg PO BID 07/03/17 Ranitidine [Zantac] 150 mg PO BID 07/03/17 Clopidogrel Bisulfate [Plavix] 75 mg PO DAILY 10/14/17 Zolpidem Tartrate [Ambien] 10 mg PO QHS 10/14/17 Albuterol Aerosols [Ventolin 2.5 mg INHALATION Q4H PRN #25 vial 10/15/17 Aerosols] Ferrous Sulfate, Dried [Iron] 160 mg PO DAILY 06/03/18 Furosemide 40 mg PO BID 06/03/18 Glipizide [Glucotrol] 5 mg PO BID 06/03/18 Insulin Glargine [Lantus (BKC)] 20 units SC QHS 06/03/18 Tiotropium [place] [Spiriva 18 MCG] 1 puff INHALATION DAILY 06/03/18 Azithromycin 250 mg PO DAILY 07/22/18 Glucosam/Ramez-Msm1/C/Aaron/Bosw 1 each PO DAILY 07/22/18 [Glucosamine-[place]ond[place]in [place]] Roflumilast [Daliresp] 500 mcg PO DAILY 07/22/18 Atorvastatin Calcium [Lipitor] 80 mg PO QHS 07/23/18 Surgical History: appendectomy, herniorrhaphy, - - Arthroscopy both knees, cardiac stents Psychiatric History: No pertinent psych hx Lives: Spouse/ Significant Other Smoking Status: Former smoker - *Family History Maternal History Items: No pertinent history Paternal History Items: Heart Disease Sibling History Items: No pertinent history Review of Systems Constitutional: Reports: Chills, Fever - subjective HEENT: Denies: Head Aches, Sinus Congestion, Sinus Drainage Cardiovascular: Denies: Chest Pain, Palpitations Respiratory: Reports: Cough - dry cough, Shortness of Breath, Wheezing. Denies: Sputum production Gastrointestinal: Denies: Abdominal Pain, Nausea, Vomiting Genitourinary: Denies: Dysuria Musculoskeletal: Denies: Joint Pain, Joint Tenderness Skin: Denies: Rash, Wounds Neurological: Denies: Numbness, Tingling, Focal weakness Psychiatric: Denies: Anxiety, Depression, Homicidal Ideations, Suicidal Ideations Hematologic/ Lymphatic: Denies: Easy Bruising, Easy Bleeding VTE Information - Inpt Only VTE Present on Admission: No VTE Mechan Device Prophylaxis: None VTE Pharm Prophylaxis ordered?: Yes - Physical Exam General: Alert, Oriented x3, Cooperative HEENT: Atraumatic, PERRLA, EOMI, Normocephalic Neck: Supple, No JVD, Negative Carotid Bruits Lungs: Rhonchi, Short of Breath, Wheezes Cardiovascular: Regular rate, No murmurs Abdomen: Bowel Sounds Present, Soft, Non Tender Extremities: No edema, Capillary Refill Less than 3 Seconds Skin: No rashes, No breakdown Musculoskeletal: No Tenderness to Palpation of Joints or Extremities Neurological: Neuro grossly intact Psych/Mental Status: Normal Affect, Appropriate Vital Signs Temp Pulse Resp BP Pulse Ox 98.4 F 113 H 18 130/67 H 95 07/22/18 21:36 07/22/18 22:12 07/22/18 22:12 07/22/18 22:12 07/22/18 22:12 Oxygen Flow Rate (L/min) 3 Oxygen Delivery Method Nasal Cannula Weight: 111.13 kg Body Mass Index (BMI) 33.2 Finger Stick Blood Glucose 148 Laboratory Tests Past 24 Hrs 07/22/18 07/22/18 22:00 22:00 WBC 8.2 RBC 3.89 L Hgb 11.2 L Hct 35.4 L MCV 91.0 MCH 28.8 MCHC 31.6 L RDW 13.4 RDW Differential 44.1 H Plt Count 258 MPV 9.3 Immature Gran % (Auto) 0.200 Neut % (Auto) 70.7 H Lymph % (Auto) 10.6 L Taylor % (Auto) 9.0 Eos % (Auto) 9.0 H Baso % (Auto) 0.5 Absolute Neuts (auto) 5.8 Absolute Lymphs (auto) 0.87 Total Counted Not Reportable Sodium 135 L Potassium 3.4 L Chloride 98 Carbon Dioxide 27.0 Anion Gap 10 BUN 17 Creatinine 0.91 Estim Creat Clear Calc 84.09 Est GFR (MDRD) Af Amer 107 Est GFR (MDRD) Non-Af 88 BUN/Creatinine Ratio 18.8 Glucose 173 H Calcium 8.6 Troponin I < 0.015 Assessment/Plan All Active Problems Abnormal nuclear stress test (Resolved) DVT (deep venous thrombosis) (Resolved) Diverticulitis large intestine w/o perforation or abscess w/o bleeding (Resolved) Gastrointestinal bleed (Resolved) History of DVT (deep vein thrombosis) (Resolved) History of upper gastrointestinal bleeding (Resolved) The patient is a 68 year old M with a significant history of COPD, multiple DVT; UT status post coronary stent, diabetes mellitus and hypertension who presented with progressively worsening shortness of breath; and wheezing consistent with likely COPD exacerbation. Acute exacerbation of COPD Patient medical history of COPD and with sudden onset shortness of breath and wheezing. CXR independently reviewed confirms no acute cardiopulmonary process. CTPA showed no PE Scheduled DuoNeb Albuterol as needed Solu-Medrol ordered Mucinex ordered. Because of reported subjective fever and chills patient will be started on Levaquin. Monitor BMP. History of CAD Stable ASA, Plavix, Lipitor Heart Failure Lasix continued Imdur and hydrochlorothiazide continued. HTN On admission his blood pressure was fairly stable. Imdur, HCTZ Diabetes mellitus Glucose was uncontrolled on admission. Home Lantus insulin, and glipizide as well as metformin. We will add correction scale insulin to his regimen. Recent rotator cuff surgery of Left shoulder Patient in sling; continue PRN oxycodone ordered. Lung Nodule Incidental findings on CTPA Follow up. DVT Prophylaxis Lovenox subcutaneous. Code Visit Inpatient E&M: 20128 Init Hosp L3
--- NOTE | 2018-07-22 23:59 | ED.DCSUM_ITS ---
- ER Visit Summary Date of Service: 07/22/18 Chief Complaint: [Shortness of breath] History of Present Illness: The patient is a 68 M [presents to the emergency department with complaint of shortness of breath that started yesterday. Patient states that he has stage IV COPD. Patient was admitted 1 month ago at [facility] for the same. Patient states that today he has had 3 or 4 severe episodes of difficulty breathing for which she used his nebulizer and felt like he was going to . Patient denies any chest pain. Patient states these symptoms are typical of his COPD exacerbations. He is not had subjective fever. Patient has had a cough with occasional yellow sputum production.] Patient tells me he had surgery on his left rotator cuff 1 week ago. Patient has a history of DVT. Patient currently on Plavix but not anticoagulation otherwise. Physical Examination: [HEENT-PERRLA, EOMI. Cranial nerves II through XII grossly intact. TMs clear. Mucous membranes moist. No adenopathy. Cardiovascular-regular rate and rhythm without murmur or ectopy Lungs-breath sounds bilaterally. Patient has expiratory wheezes bilaterally. Patient is tachypneic. There is no accessory muscle use or retractions. No significant conversational dyspnea. Abdomen-normoactive bowel sounds, soft, nontender, no rebound or rigidity, no peritoneal signs. Extremities-intact ?4, normal range of motion, normal pulses, atraumatic] Test Results: [EKG obtained arrival shows sinus tachycardia with a ventricular rate of 107 bpm. CBC with differential showed a normal white blood cell count of 8.2, hemoglobin 11, hematocrit 35, placed 258. Chemistries unremarkable. Troponin is less than 0.015. Chest x-ray showed nothing acute.] CTA of the chest was ordered to rule out PE given his recent surgery as well as tachycardia, history of DVT, and edematous lower extremities. Results of CTA are currently pending. Emergency Department Course and Treatment: [Patient was given DuoNeb aerosol followed by albuterol aerosol. Patient was given site Medrol and 25 mg IV.] Treatment Plan: [Patient will be admitted for aerosols and steroids.] Disposition: [Admit] Impression: [COPD exacerbation] This note was generated with [employer] dictation software. It may contain incorrect words, spelling, and punctuation that were not noted in review of the chart prior to signing ED Disposition - Plan for ED Patient: Referrals: Ge Martinez MD [Primary Care Provider] -
[2018-07-23] VITALS (16 sets, daily range): BP systolic 120–145; BP diastolic 65–76; PULSE 80–102; RESP 16–22; TEMP 36.5–37.1; O2SAT 94–100; BMI 42.3
[2018-07-23] MEDS: Ipratropium/Albuterol Sulfate 3 ML AMPUL.NEB INHALATION ×6 (01:43→22:54)
[2018-07-23] MEDS: oxyCODONE 5 MG Tablet PO ×2 (02:04→08:27)
[2018-07-23] MEDS: levoFLOXacin 750 MG Tablet PO (02:15)
[2018-07-23 02:26] LABS: Bedside Glucose 248 mg/dL (70-110)
[2018-07-23 06:30] LABS: Anion Gap 11 (5-15); BUN 17 mg/dL (7-18); BUN/Creat Ratio 14.7 RATIO (10-20); Calcium,Total 8.3 mg/dL (8.5-10.1); Chloride 99 mmol/L (98-107); Creatinine, Serum 1.16 mg/dL (0.70-1.30); EST Glomerular Filtration Rate 66 mL/min (>60); Est Glom Filt Rate - Afr Amer 80 mL/min (>60); Estimated Creatinine Clearance 54.24 ml/min; Glucose 386 mg/dL (74-106); Potassium 4.3 mmol/L (3.5-5.1); Sodium Level 136 mmol/L (136-145)
[2018-07-23 06:37] LABS: Bedside Glucose 295 mg/dL (70-110)
[2018-07-23] MEDS: 0.9% NaCl Peripheral Flush Adult/Peds IV ×2 (06:38→21:37)
[2018-07-23] MEDS: Insulin Lispro 100 UNIT/ML INSULN.PEN SQ ×4 (06:38→21:35)
--- NOTE | 2018-07-23 07:31 | NURSING ---
Patient reports that he uses 3liters of oxygen at home chronically
[2018-07-23] MEDS: Pantoprazole Sodium 40 MG Tablet PO (08:26)
[2018-07-23] MEDS: Lisinopril 20 MG Tablet PO ×2 (08:26→21:30)
[2018-07-23] MEDS: Tamsulosin HCl 0.4 MG Capsule PO (08:26)
[2018-07-23] MEDS: metFORMIN HCl 1,000 MG Tablet 1000 MG PO ×2 (08:26→18:15)
[2018-07-23] MEDS: glipiZIDE 5 MG Tablet PO ×2 (08:26→18:15)
[2018-07-23] MEDS: Clopidogrel Bisulfate 75 MG Tablet PO (08:26)
[2018-07-23] MEDS: Famotidine 20 MG Tablet PO ×2 (08:26→21:30)
[2018-07-23] MEDS: ROFLUMILAST 500 MCG TABLET PO (08:27)
[2018-07-23] MEDS: Isosorbide Mononitrate 60 MG Tablet PO (08:27)
[2018-07-23] MEDS: Furosemide 40 MG Tablet PO ×3 (08:27→18:15)
[2018-07-23] MEDS: Metoprolol Tartrate 25 MG Tablet PO ×2 (08:27→21:29)
[2018-07-23] MEDS: Finasteride 5 MG Tablet PO (08:27)
[2018-07-23] MEDS: hydroCHLOROthiazide 25 MG Tablet PO (08:27)
[2018-07-23] MEDS: Senna/Docusate Sodium 1 Tablet PO ×2 (08:32→21:29)
[2018-07-23] MEDS: guaiFENesin 1,200 MG Tablet 1200 MG PO ×2 (08:32→21:29)
[2018-07-23] MEDS: Glucerna Shake 120 ML LIQUID PO (08:33)
--- NOTE | 2018-07-23 09:50 | PCM.PROGNOTE ---
Subjective: Chief complaint: Follow-up after admission for acute COPD exacerbation. Patient seen and examined. No acute events overnight. He mentioned that his breathing started to improve minimally, still complaining of cough with difficulty expectorating sputum. He complains of bilateral leg edema that has been increasing for the last several days, has been on Lasix that was increased by his PCP around 1 week ago. Denies fever chills. He is afebrile, blood pressure and heart rate are stable, pulse ox is 97% on 3 L which is his baseline at home. - Physical Exam General: Alert, Oriented x3, Cooperative, - - Minimally short of breath. HEENT: Atraumatic, PERRLA, EOMI, Normocephalic Oral: Moist Mucosa, No Gingival or Mucosal Lesions/ Ulcerations Neck: Supple, No JVD, Negative Carotid Bruits, Trachea Midline, Thyroid Normal Size and Texture Lungs: No rales, Diminished, Rhonchi, Short of Breath, Wheezes, - - Decreased sounds bilateral, bilateral expiratory wheezes. Cardiovascular: Regular rate, Regular Rhythm, Normal S1, Normal S2, PMI Normal Abdomen: Bowel Sounds Present, Soft, Non Tender, Non-Distended, No Hepato-splenomegaly, Obese Extremities: No clubbing, No cyanosis, Edema - ++ Edema. Skin: No rashes, No breakdown Lymphatic: No Cervical, Supraclavicular, or Inguinal Adenopathy Neurological: Cranial nerves II-XII grossly intact, Motor Exam 5/5 strength throughout Psych/Mental Status: Normal Affect, Appropriate, Alert and oriented to time, place, person, mood and affect Vital Signs Temp Pulse Resp BP Pulse Ox 98.4 F 80 18 126/67 H 97 07/23/18 08:15 07/23/18 08:27 07/23/18 08:15 07/23/18 08:15 07/23/18 08:15 Oxygen Flow Rate (L/min) 3 Oxygen Delivery Method Nasal Cannula Weight: 262 lb Body Mass Index (BMI) 42.3 Finger Stick Blood Glucose 148 Intake and Output for Last 24 Hours 07/21/18 07/22/18 07/23/18 23:59 23:59 23:59 Intake Total 1060 / 1060 Output Total 1100 / 1100 Balance -40 / -40 Laboratory Tests Past 24 Hrs 07/22/18 07/22/18 07/23/18 22:00 22:00 05:48 WBC 8.2 RBC 3.89 L Hgb 11.2 L Hct 35.4 L MCV 91.0 MCH 28.8 MCHC 31.6 L RDW 13.4 RDW Differential 44.1 H Plt Count 258 MPV 9.3 Immature Gran % (Auto) 0.200 Neut % (Auto) 70.7 H Lymph % (Auto) 10.6 L Wilkinson % (Auto) 9.0 Eos % (Auto) 9.0 H Baso % (Auto) 0.5 Absolute Neuts (auto) 5.8 Absolute Lymphs (auto) 0.87 Total Counted Not Reportable Sodium 135 L 136 Potassium 3.4 L 4.3 Chloride 98 99 Carbon Dioxide 27.0 26.0 Anion Gap 10 11 BUN 17 17 Creatinine 0.91 1.16 Estim Creat Clear Calc 84.09 54.24 Est GFR (MDRD) Af Amer 107 80 Est GFR (MDRD) Non-Af 88 66 BUN/Creatinine Ratio 18.8 14.7 Glucose 173 H 386 H Calcium 8.6 8.3 L Troponin I < 0.015 POC Glucose 07/23/18 07/23/18 06:32 02:10 POC Glucose 295 H 248 H Clinical Impression(s) from Imaging Studies Chest X-Ray 07/22/18 22:10 IMPRESSION: Hiatal hernia. No focal infiltrate. Electronically Signed: Reymundo Martinez MD at 23:03 EST , Service support , Chest CTA 07/22/18 22:34 IMPRESSION: No demonstrated pulmonary embolism, aneurysm, leak or arterial dissection. Atherosclerosis and extensive coronary artery disease. Small area of opacification posterior medial left lower lobe with nodularity. This is new since previous examination. Follow-up examination to assess for resolution of findings is recommended. Stable large hiatal hernia and other nonacute findings. Electronically Signed: Elisa Sánchez MD at 0:15 EST , Service support , Medical Necessity - Tobacco Use Smoking Status: Former smoker Assessment/Plan This is a 68 years old male patient presented to the emergency room because of shortness of breath and cough with occasional sputum as well as wheezing, found to have acute COPD exacerbation and was admitted for treatment. #1 acute COPD exacerbation: Chest x-ray reviewed, no acute findings. He is on IV steroids, oral Levaquin and bronchodilators. He is on home oxygen at 3 L and he has been on the same at this time. He does have significant wheezing, dyspneic and tachypneic. CTA chest showed no PE or dissection. Plan: Continue same treatment, ambulation, encourage incentive spirometer, chest physiotherapy. #2 chronic respiratory failure: On home oxygen at 3 L. He has been on 3 L at this time although he looked dyspneic, tachypneic with audible wheezing. Plan as above. #3 incidental small left lower lobe nodule: Incidental finding on CTA chest. Size is approximately 5 mm. Recommend follow-up with repeat CT scan chest in 6 months to 1 year. #4 CAD status post stents: Stable, no chest pain. Continue aspirin, statins, Plavix, nitrate, lisinopril and metoprolol. #5 chronic diastolic CHF: Clinically stable, compensated. According to the patient, the dose of Lasix increased few days ago by his PCP because of increasing bilateral leg edema. At this time, I doubt acute CHF exacerbation. Plan to increase Lasix to 40 mg p.o. twice daily, continue HCTZ, continue lisinopril and metoprolol. #6 type 2 diabetes mellitus: Blood sugars in the 200 range, continue Lantus, sliding scale, glipizide and metformin. #7 hypertension: Blood pressure stable, continue HCTZ, isosorbide mononitrate, lisinopril and metoprolol. #8 benign prostatic hypertrophy: Continue Flomax. #9 hyperlipidemia: Continue statins. #10 DVT prophylaxis: Subcu Lovenox. This note was generated with [employer] dictation software. It may contain incorrect words, spelling, and punctuation that were not noted in checking the note before signing. Code Visit Inpatient E&M: 70544 Subs Hosp L2
[2018-07-23] MEDS: Enoxaparin 40 MG/0.4 ML Syringe SC (10:52)
[2018-07-23 11:12] LABS: Bedside Glucose 172 mg/dL (70-110)
--- NOTE | 2018-07-23 12:10 | CASEMGMT ---
RN CM Face to Face with patient for initial transition planning/care coordination assessment. RN CM introduced self and role at [facility]. Patient lying in bed, alert and oriented, at bedside. Patient willing to participate in assessment and is able to answer all questions appropriately. Care providers, pharmacy, and demographics verified. Patient wishes to discharge home, denies need for home health at this time. Patient states he has no further needs or concerns at this time. CM to follow for discharge planning needs that may arise. PCP: Juan Specialists: Marianne stapler machine Preferred Pharmacy: [facility] Insurance: [employer] Prescription Benefit: yes Living Will/HPOA: yes, Caro Clemens LNOK: Living Arrangements: Patient lives with in 1 story home with 1 step to enter the home. Patient is independent at home. Transportation: self/ DME/HHC: Patient has home oxygen through [employer] at 3lpm, cpap, and nebulizer, also shower chair. Patient denies previous HHC. Disposition Plan: Patient to discharge home with family support and follow-up plans in place. Kimberli SHAIKH, RN, CM
[2018-07-23 16:36] LABS: Bedside Glucose 335 mg/dL (70-110)
[2018-07-23 21:26] LABS: Bedside Glucose 220 mg/dL (70-110)
[2018-07-23] MEDS: Aspirin 81 MG TAB.CHEW PO (21:29)
[2018-07-23] MEDS: Zolpidem Tartrate 5 MG Tablet PO (21:30)
[2018-07-23] MEDS: Atorvastatin Calcium 80 MG Tablet PO (21:30)
[2018-07-24] VITALS (12 sets, daily range): BP systolic 119–148; BP diastolic 59–76; PULSE 64–83; RESP 18–32; TEMP 36.5–37.1; O2SAT 95–98
[2018-07-24] MEDS: oxyCODONE 5 MG Tablet PO ×4 (02:47→22:23)
[2018-07-24] MEDS: Albuterol 2.5 MG/3 ML VIAL.NEB. INHALATION (05:07)
[2018-07-24] MEDS: Ipratropium/Albuterol Sulfate 3 ML AMPUL.NEB INHALATION ×5 (06:43→23:16)
[2018-07-24] MEDS: levoFLOXacin 750 MG Tablet PO (06:43)
[2018-07-24] MEDS: Insulin Lispro 100 UNIT/ML INSULN.PEN SQ ×2 (06:43→11:37)
[2018-07-24] MEDS: 0.9% NaCl Peripheral Flush Adult/Peds IV ×2 (06:44→23:45)
[2018-07-24 07:01] LABS: Bedside Glucose 218 mg/dL (70-110)
--- NOTE | 2018-07-24 08:33 | PN_ITS ---
Subjective: Chief complaint: Follow-up after admission for acute COPD exacerbation. Patient seen and examined. No acute events overnight. He reported improvement of his shortness of breath but still complaining of cough with sputum, difficult to expectorate. Denies fever chills. He remains on 3 L which is his baseline at home. His other vital signs are stable. - Physical Exam General: Alert, Oriented x3, Cooperative, - - Minimally short of breath. HEENT: Atraumatic, PERRLA, EOMI, Normocephalic Oral: Moist Mucosa, No Gingival or Mucosal Lesions/ Ulcerations Neck: Supple, No JVD, Negative Carotid Bruits, Trachea Midline, Thyroid Normal Size and Texture Lungs: No rhonchi, No rales, Short of Breath, Wheezes, - - Decreased breath sounds bilateral, bilateral expiratory wheezes. Cardiovascular: Regular rate, Regular Rhythm, Normal S1, Normal S2, PMI Normal Abdomen: Bowel Sounds Present, Soft, Non Tender, Non-Distended, No Hepato- splenomegaly, Obese Extremities: No clubbing, No cyanosis, Edema - + Edema. Skin: No rashes, No breakdown Lymphatic: No Cervical, Supraclavicular, or Inguinal Adenopathy Neurological: Cranial nerves II-XII grossly intact, Motor Exam 5/5 strength throughout Psych/Mental Status: Normal Affect, Appropriate, Alert and oriented to time, place, person, mood and affect Vital Signs Temp Pulse Resp BP Pulse Ox 98 F 76 19 H 148/76 H 97 07/24/18 02:39 07/24/18 05:07 07/24/18 05:07 07/24/18 02:39 07/24/18 02:39 Oxygen Flow Rate (L/min) 3 Oxygen Delivery Method Nasal Cannula Weight: 266 lb 12.149 oz Body Mass Index (BMI) 42.3 Finger Stick Blood Glucose 148 Intake and Output for Last 24 Hours 07/22/18 07/23/18 07/24/18 23:59 23:59 23:59 Intake Total 1860 / 1860 600 / 600 Output Total 1100 / 1100 700 / 700 Balance 760 / 760 -100 / -100 POC Glucose 07/24/18 07/23/18 07/23/18 06:40 21:16 16:27 POC Glucose 218 H 220 H 335 H 07/23/18 10:58 POC Glucose 172 H Medical Necessity - Tobacco Use Smoking Status: Former smoker Assessment/Plan This is a 68 years old male patient presented to the emergency room because of shortness of breath and cough with occasional sputum as well as wheezing, found to have acute COPD exacerbation and was admitted for treatment. #1 acute COPD exacerbation: He is on IV steroids, oral Levaquin and bronchodilators. Chest x-ray reviewed, no acute findings. Symptoms started to improve, remained stable on 3 L. CTA chest showed no PE or dissection. Plan: Wean off IV steroids, continue other treatments, possible DC home tomorrow. #2 chronic respiratory failure: On home oxygen at 3 L. He has been on 3 L at this time, less dyspneic and tachypneic compared to yesterday. He is improving. #3 incidental small left lower lobe nodule: Incidental finding on CTA chest. Size is approximately 5 mm. Recommend follow-up with repeat CT scan chest in 6 months to 1 year. #4 CAD status post stents: Stable, no chest pain. Continue aspirin, statins, Plavix, nitrate, lisinopril and metoprolol. #5 chronic diastolic CHF: Clinically stable, compensated. Edema of both legs is improving, coming down. He is on Lasix twice daily, lisinopril and metoprolol. Plan to continue same treatment. #6 type 2 diabetes mellitus: Blood sugars still in the high range likely because of IV steroids. continue Lantus, sliding scale, glipizide and metformin. Expect blood sugar to improve after weaning of IV steroids. #7 hypertension: Blood pressure stable, continue HCTZ, isosorbide mononitrate, lisinopril and metoprolol. #8 benign prostatic hypertrophy: Continue Flomax. #9 hyperlipidemia: Continue statins. #10 DVT prophylaxis: Subcu Lovenox. This note was generated with [employer] dictation software. It may contain incorrect words, spelling, and punctuation that were not noted in checking the note before signing. Code Visit Inpatient E&M: 72632 Subs Hosp L2
[2018-07-24] MEDS: guaiFENesin 1,200 MG Tablet 1200 MG PO ×2 (10:14→22:25)
[2018-07-24] MEDS: hydroCHLOROthiazide 25 MG Tablet PO (10:15)
[2018-07-24] MEDS: glipiZIDE 5 MG Tablet PO ×2 (10:16→16:11)
[2018-07-24] MEDS: Isosorbide Mononitrate 60 MG Tablet PO (10:16)
[2018-07-24] MEDS: Senna/Docusate Sodium 1 Tablet PO (10:18)
[2018-07-24] MEDS: Furosemide 40 MG Tablet PO ×2 (10:18→16:12)
[2018-07-24] MEDS: metFORMIN HCl 1,000 MG Tablet 1000 MG PO ×2 (10:19→16:11)
[2018-07-24] MEDS: Tamsulosin HCl 0.4 MG Capsule PO (10:19)
[2018-07-24] MEDS: Enoxaparin 40 MG/0.4 ML Syringe SC (10:20)
[2018-07-24] MEDS: Metoprolol Tartrate 25 MG Tablet PO ×2 (10:22→22:24)
[2018-07-24] MEDS: Famotidine 20 MG Tablet PO ×2 (10:23→22:25)
[2018-07-24] MEDS: Lisinopril 20 MG Tablet PO ×2 (10:23→22:26)
[2018-07-24] MEDS: Pantoprazole Sodium 40 MG Tablet PO (10:24)
[2018-07-24] MEDS: Clopidogrel Bisulfate 75 MG Tablet PO (10:24)
[2018-07-24] MEDS: Finasteride 5 MG Tablet PO (10:24)
[2018-07-24] MEDS: ROFLUMILAST 500 MCG TABLET PO (11:37)
[2018-07-24 11:55] LABS: Bedside Glucose 194 mg/dL (70-110)
[2018-07-24 16:26] LABS: Bedside Glucose 101 mg/dL (70-110)
[2018-07-24] MEDS: Zolpidem Tartrate 5 MG Tablet PO (22:23)
[2018-07-24] MEDS: Aspirin 81 MG TAB.CHEW PO (22:23)
[2018-07-24] MEDS: Atorvastatin Calcium 80 MG Tablet PO (22:24)
--- NOTE | 2018-07-24 23:10 | NURSING ---
Nursing boat and plant utility supervisor, Trisha, called to start IV after several attempts from this RN and supply chain coordinator, Melinda.
[2018-07-24 23:16] LABS: Bedside Glucose 136 mg/dL (70-110)
--- NOTE | 2018-07-24 23:55 | NURSING ---
Aloe [place] cream applied to bilat feet per pt request.
[2018-07-25 03:02] VITALS: PULSE 90; RESP 28
[2018-07-25] MEDS: Ipratropium/Albuterol Sulfate 3 ML AMPUL.NEB INHALATION (03:02)
[2018-07-25 03:15] VITALS: BP 126/69; PULSE 77; RESP 18; TEMP 36.6; O2SAT 96
[2018-07-25] MEDS: oxyCODONE 5 MG Tablet PO (04:46)
[2018-07-25] MEDS: Insulin Lispro 100 UNIT/ML INSULN.PEN SQ (06:42)
[2018-07-25] MEDS: levoFLOXacin 750 MG Tablet PO (06:42)
[2018-07-25 07:10] LABS: Bedside Glucose 244 mg/dL (70-110)
[2018-07-25] MEDS: Clopidogrel Bisulfate 75 MG Tablet PO (08:34)
[2018-07-25] MEDS: Lisinopril 20 MG Tablet PO (08:34)
[2018-07-25] MEDS: glipiZIDE 5 MG Tablet PO (08:34)
[2018-07-25] MEDS: Famotidine 20 MG Tablet PO (08:34)
[2018-07-25] MEDS: hydroCHLOROthiazide 25 MG Tablet PO (08:35)
[2018-07-25] MEDS: Pantoprazole Sodium 40 MG Tablet PO (08:35)
[2018-07-25] MEDS: Isosorbide Mononitrate 60 MG Tablet PO (08:35)
[2018-07-25] MEDS: Furosemide 40 MG Tablet PO (08:35)
[2018-07-25] MEDS: metFORMIN HCl 1,000 MG Tablet 1000 MG PO (08:35)
[2018-07-25] MEDS: guaiFENesin 1,200 MG Tablet 1200 MG PO (08:36)
[2018-07-25] MEDS: ROFLUMILAST 500 MCG TABLET PO (08:36)
[2018-07-25] MEDS: Tamsulosin HCl 0.4 MG Capsule PO (08:36)
[2018-07-25] MEDS: Senna/Docusate Sodium 1 Tablet PO (08:36)
[2018-07-25 08:37] VITALS: PULSE 71
[2018-07-25] MEDS: Metoprolol Tartrate 25 MG Tablet PO (08:37)
[2018-07-25] MEDS: Enoxaparin 40 MG/0.4 ML Syringe SC (08:37)
[2018-07-25] MEDS: Finasteride 5 MG Tablet PO (08:40)
[2018-07-25] MEDS: 0.9% NaCl Peripheral Flush Adult/Peds IV (08:40)
[2018-07-25 08:46] VITALS: BP 112/47; PULSE 71; RESP 18; TEMP 36.9; O2SAT 96
--- NOTE | 2018-07-25 08:57 | PCM.DC ---
- Discharge Diagnoses Current Active Problems: Current Active and Chronic Problems COPD with acute exacerbation (Chronic) You will use the following diet at home:: Calorie/Carbohydrate Controlled (specify 1200, 1400, etc) - 1800 iraida, Cardiac Your food should be the consistency of: Regular Discharge Activity: Return to Normal Activity Weight Bearing Status: Weight bearing as tolerated Call your doctor if you observe: Fever of 101 or Higher, Shortness of breath, Dizziness, Fainting spells, Chest pain, Increased palpitations (irregular heartbeat), Uncontrolled pain Allergies/Adverse Reactions: Allergies No Known Allergies Allergy (Verified 07/22/18 21:51) Medications to take at Discharge Hydrochlorothiazide [Hctz] 25 mg PO DAILY 03/19/14 Lisinopril [Zestril] 20 mg PO BID 03/19/14 Tamsulosin HCl [Flomax] 0.4 mg PO DAILY 03/19/14 Amitriptyline HCl 10 mg PO QHS PRN 03/22/14 Isosorbide Mononitrate [Imdur] 60 mg PO DAILY 03/22/14 Albuterol Inhaler [Ventolin Hfa] 2 puff INHALATION Q2H PRN PRN #1 03/24/14 Pantoprazole Sodium [Protonix] 40 mg PO DAILY #30 tablet 03/24/14 Metformin HCl [Glucophage] 1,000 mg PO BID 12/24/14 Hyoscyamine Sulfate 0.125 mg SL BID PRN PRN 12/18/16 Ascorbic Acid [Vitamin C] 500 mg PO DAILY 07/03/17 Aspirin [Aspirin, Baby] 81 mg PO QHS 07/03/17 Cinnamon Bark [Cinnamon] 1,000 mg PO DAILY 07/03/17 Finasteride [Proscar] 5 mg PO DAILY 07/03/17 Fish Oil/Dha/Epa [Fish Oil 1,200 mg Fish Oil] 1 each PO DAILY 07/03/17 Metoprolol Tartrate 25 mg PO BID 07/03/17 Ranitidine [Zantac] 150 mg PO BID 07/03/17 Clopidogrel Bisulfate [Plavix] 75 mg PO DAILY 10/14/17 Zolpidem Tartrate [Ambien] 10 mg PO QHS 10/14/17 Albuterol Aerosols [Ventolin Aerosols] 2.5 mg INHALATION Q4H PRN #25 vial 10/15/17 Ferrous Sulfate, Dried [Iron] 160 mg PO DAILY 06/03/18 Furosemide 40 mg PO BID 06/03/18 Glipizide [Glucotrol] 5 mg PO BID 06/03/18 Insulin Glargine [Lantus SoloStar Pen] 20 units SC QHS 06/03/18 Tiotropium [place] [Spiriva 18 MCG] 1 puff INHALATION DAILY 06/03/18 Glucosam/Ramez-Msm1/C/Aaron/Bosw [Glucosamine-Chondroitin Caplet] 1 each PO DAILY 07/22/18 Roflumilast [Daliresp] 500 mcg PO DAILY 07/22/18 Atorvastatin Calcium [Lipitor] 80 mg PO QHS 07/23/18 Prednisone 40 mg PO DAILY #30 tablet 07/25/18 levoFLOXacin tablet [Levaquin tablet] 750 mg PO DAILY@0600 #5 tablet 07/25/18 The following prescriptions were given: levoFLOXacin tablet [Levaquin tablet] 750 mg PO DAILY@0600 #5 tablet Prednisone 40 mg PO DAILY #30 tablet Primary Care Physician: Ge Martinez MD [Primary Care Provider] - Please follow up with your Primary Care Physician in: 1 weeks. Test Results: Test results from this visit will be discussed in further detail at your follow-up appointment, if applicable.
[2018-07-25 09:12] VITALS: PULSE 94; RESP 18; O2SAT 95
[2018-07-25] MEDS: Albuterol 2.5 MG/3 ML VIAL.NEB. INHALATION (09:12)
--- NOTE | 2018-07-25 12:40 | PCM.DC.SUM ---
Discharge Date and Diagnosis Date of Admission: 07/23/18 Date of Discharge: 07/25/18 - Primary Discharge Diagnosis Acute COPD exacerbation. - Secondary Discharge Diagnosis Chronic Problems GERD (gastroesophageal reflux disease) (Chronic) COPD with acute exacerbation (Chronic) Diabetes mellitus type 2 in obese (Chronic) Hyperlipidemia (Chronic) Hypertension (Chronic) Benign prostatic hypertrophy (Chronic) Sleep apnea (Chronic) Coronary atherosclerosis of [place] coronary vessel (Chronic) Status post 2 stents in 2004 COPD (chronic obstructive pulmonary disease) (Chronic) History of PTCA (Chronic) History of CVA (cerebrovascular accident) (Chronic) AV block, [place] 1 (Chronic) Hospital Course and Treatment Imaging Results: Clinical Impression(s) from Imaging Studies Chest X-Ray 07/22/18 22:10 IMPRESSION: Hiatal hernia. No focal infiltrate. Electronically Signed: Reymundo Martinez MD at 23:03 EST , Service support , Chest CTA 07/22/18 22:34 IMPRESSION: No demonstrated pulmonary embolism, aneurysm, leak or arterial dissection. Atherosclerosis and extensive coronary artery disease. Small area of opacification posterior medial left lower lobe with nodularity. This is new since previous examination. Follow-up examination to assess for resolution of findings is recommended. Stable large hiatal hernia and other nonacute findings. Electronically Signed: Elisa Sánchez MD at 0:15 EST , Service support , Operations: None Procedures: None Summary of Care Provided: Patient seen and examined on the day of discharge and appeared to be stable to be discharged home. Shortness of breath continued to improve, still having mild productive cough. Remained stable on 3 L, other vital signs are stable. The patient is a 68 year old M admitted because of worsening shortness of breath and productive cough as well as wheezing and he was found to have acute COPD exacerbation. His chest x-ray showed no acute infiltrate, consolidation or effusion, pneumonia without. CTA chest done and showed no PE or dissection. Patient was treated with IV steroids, antibiotics and bronchodilators. There was no evidence of acute CHF. His routine blood work was unremarkable. With above-mentioned treatment, patient symptoms improved and he remained stable on 3 of oxygen. He was found to have incidental small left lower lobe nodule approximately 5 mm in size. Patient discharged home in a stable medical condition, discharged on Levaquin for 5 days, discharged on tapering course of prednisone, continued on albuterol nebulizer and inhaler, continued on Spiriva and home oxygen at 3 L, recommended to have follow-up CT scan chest in 6 months to 1 year for follow-up for small incidental left lower lobe nodule, recommended follow-up with PCP in 1 week. - Physical Exam General: Alert, Oriented x3, Cooperative HEENT: Atraumatic, PERRLA, EOMI, Normocephalic Oral: Moist Mucosa, No Gingival or Mucosal Lesions/ Ulcerations Neck: Supple, No JVD, Negative Carotid Bruits, Trachea Midline, Thyroid Normal Size and Texture Lungs: No rhonchi, No rales, Diminished, Wheezes Cardiovascular: Regular rate, Regular Rhythm, Normal S1, Normal S2, PMI Normal Abdomen: Bowel Sounds Present, Soft, Non Tender, Non-Distended, No Hepato-splenomegaly, Obese Extremities: No clubbing, No cyanosis, Edema Skin: No rashes, No breakdown Lymphatic: No Cervical, Supraclavicular, or Inguinal Adenopathy Neurological: Cranial nerves II-XII grossly intact, Neuro grossly intact Psych/Mental Status: Normal Affect, Appropriate Vital Signs Temp Pulse Resp BP Pulse Ox 98.4 F 94 18 112/47 L 95 07/25/18 08:46 07/25/18 09:12 07/25/18 09:12 07/25/18 08:46 07/25/18 09:12 Oxygen Flow Rate (L/min) 3 Oxygen Delivery Method Nasal Cannula Weight: 263 lb 7.238 oz Body Mass Index (BMI) 42.3 Finger Stick Blood Glucose 148 Intake and Output for Last 24 Hours 07/23/18 07/24/18 07/25/18 23:59 23:59 23:59 Intake Total 1860 / 1860 1500 / 1500 980 / 980 Output Total 1100 / 1100 950 / 950 Balance 760 / 760 550 / 550 980 / 980 POC Glucose 07/25/18 07/24/18 07/24/18 06:40 22:22 16:14 POC Glucose 244 H 136 H 101 Discharge Activity: Return to Normal Activity Weight Bearing Status: Weight bearing as tolerated Call your doctor if you observe: Fever of 101 or Higher, Shortness of breath, Dizziness, Fainting spells, Chest pain, Increased palpitations (irregular heartbeat), Uncontrolled pain Home Medications: Medications to take at Discharge Hydrochlorothiazide [Hctz] 25 mg PO DAILY 03/19/14 Lisinopril [Zestril] 20 mg PO BID 03/19/14 Tamsulosin HCl [Flomax] 0.4 mg PO DAILY 03/19/14 Amitriptyline HCl 10 mg PO QHS PRN 03/22/14 Isosorbide Mononitrate [Imdur] 60 mg PO DAILY 03/22/14 Albuterol Inhaler [Ventolin Hfa] 2 puff INHALATION Q2H PRN PRN #1 03/24/14 Pantoprazole Sodium [Protonix] 40 mg PO DAILY #30 tablet 03/24/14 Metformin HCl [Glucophage] 1,000 mg PO BID 12/24/14 Hyoscyamine Sulfate 0.125 mg SL BID PRN PRN 12/18/16 Ascorbic Acid [Vitamin C] 500 mg PO DAILY 07/03/17 Aspirin [Aspirin, Baby] 81 mg PO QHS 07/03/17 Cinnamon Bark [Cinnamon] 1,000 mg PO DAILY 07/03/17 Finasteride [Proscar] 5 mg PO DAILY 07/03/17 Fish Oil/Dha/Epa [Fish Oil 1,200 mg Fish Oil] 1 each PO DAILY 07/03/17 Metoprolol Tartrate 25 mg PO BID 07/03/17 Ranitidine [Zantac] 150 mg PO BID 07/03/17 Clopidogrel Bisulfate [Plavix] 75 mg PO DAILY 10/14/17 Zolpidem Tartrate [Ambien] 10 mg PO QHS 10/14/17 Albuterol Aerosols [Ventolin Aerosols] 2.5 mg INHALATION Q4H PRN #25 vial 10/15/17 Ferrous Sulfate, Dried [Iron] 160 mg PO DAILY 06/03/18 Furosemide 40 mg PO BID 06/03/18 Glipizide [Glucotrol] 5 mg PO BID 06/03/18 Insulin Glargine [Lantus SoloStar Pen] 20 units SC QHS 06/03/18 Tiotropium [place] [Spiriva 18 MCG] 1 puff INHALATION DAILY 06/03/18 Glucosam/Ramez-Msm1/C/Aaron/Bosw [Glucosamine-Chondroitin Caplet] 1 each PO DAILY 07/22/18 Roflumilast [Daliresp] 500 mcg PO DAILY 07/22/18 Atorvastatin Calcium [Lipitor] 80 mg PO QHS 07/23/18 Prednisone 40 mg PO DAILY #30 tablet 07/25/18 levoFLOXacin tablet [Levaquin tablet] 750 mg PO DAILY@0600 #5 tablet 07/25/18 Following Prescrptions Were Given to Patient: levoFLOXacin tablet [Levaquin tablet] 750 mg PO DAILY@0600 #5 tablet Prednisone 40 mg PO DAILY #30 tablet Primary Care Physician: Ge Martinez MD [Primary Care Provider] - Please follow up with your Primary Care Physician in: 1 weeks. Disposition: Home Minutes spent on discharge:: 26 Patient Condition:: Stable Medical Necessity - Tobacco Use Smoking Status: Former smoker Meaningful Use Info Meaningful Use Diagnoses (Choose all that apply): None applicable Code Visit Inpatient E&M: 72761 Disch Hosp
--- NOTE | 2018-07-25 12:44 | DS.PCM_ITS ---
Discharge Date and Diagnosis Date of Admission: 07/23/18 Date of Discharge: 07/25/18 - Primary Discharge Diagnosis Acute COPD exacerbation. 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 No focal infiltrate. Electronically Signed: Reymundo Martinez MD at 23:03 EST , Service support , Chest CTA 07/22/18 22:34 IMPRESSION: No demonstrated pulmonary embolism, aneurysm, leak or arterial dissection. Atherosclerosis and extensive coronary artery disease. Small area of opacification posterior medial left lower lobe with nodularity. This is new since previous examination. Follow-up examination to assess for resolution of findings is recommended. Stable large hiatal hernia and other nonacute findings. Electronically Signed: Elisa Sánchez MD at 0:15 EST , Service support , Operations: None Procedures: None Summary of Care Provided: Patient seen and examined on the day of discharge and appeared to be stable to be discharged home. Shortness of breath continued to improve, still having mild productive cough. Remained stable on 3 L, other vital signs are stable. The patient is a 68 year old M admitted because of worsening shortness of breath and productive cough as well as wheezing and he was found to have acute COPD exacerbation. His chest x-ray showed no acute infiltrate, consolidation or eff usion, pneumonia without. CTA chest done and showed no PE or dissection. Patient was treated with IV steroids, antibiotics and bronchodilators. There was no evidence of acute CHF. His routine blood work was unremarkable. With above-mentioned treatment, patient symptoms improved and he remained stable on 3 of oxygen. He was found to have incidental small left lower lobe nodule approximately 5 mm in size. Patient discharged home in a stable medical condition, discharged on Levaquin for 5 days, discharged on tapering course of prednisone, continued on albuterol nebulizer and inhaler, continued on Spiriva and home oxygen at 3 L, recommended to have follow-up CT scan chest in 6 months to 1 year for follow-up for small incidental left lower lobe nodule, recommended follow-up with PCP in 1 week. - Physical Exam General: Alert, Oriented x3, Cooperative HEENT: Atraumatic, PERRLA, EOMI, Normocephalic Oral: Moist Mucosa, No Gingival or Mucosal Lesions/ Ulcerations Neck: Supple, No JVD, Negative Carotid Bruits, Trachea Midline, Thyroid Normal Size and Texture Lungs: No rhonchi, No rales, Diminished, Wheezes Cardiovascular: Regular rate, Regular Rhythm, Normal S1, Normal S2, PMI Normal Abdomen: Bowel Sounds Present, Soft, Non Tender, Non-Distended, No Hepato- splenomegaly, Obese Extremities: No clubbing, No cyanosis, Edema Skin: No rashes, No breakdown Lymphatic: No Cervical, Supraclavicular, or Inguinal Adenopathy Neurological: Cranial nerves II-XII grossly intact, Neuro grossly intact Psych/Mental Status: Normal Affect, Appropriate Vital Signs Temp Pulse Resp BP Pulse Ox 98.4 F 94 18 112/47 L 95 07/25/18 08:46 07/25/18 09:12 07/25/18 09:12 07/25/18 08:46 07/25/18 09:12 Oxygen Flow Rate (L/min) 3 Oxygen Delivery Method Nasal Cannula Weight: 263 lb 7.238 oz Body Mass Index (BMI) 42.3 Finger Stick Blood Glucose 148 Intake and Output for Last 24 Hours 07/23/18 07/24/18 07/25/18 23:59 23:59 23:59 Intake Total 1860 / 1860 1500 / 1500 980 / 980 Output Total 1100 / 1100 950 / 950 Balance 760 / 760 550 / 550 980 / 980 POC Glucose 07/25/18 07/24/18 07/24/18 06:40 22:22 16:14 POC Glucose 244 H 136 H 101 Discharge Activity: Return to Normal Activity Weight Bearing Status: Weight bearing as tolerated Call your doctor if you observe: Fever of 101 or Higher, Shortness of breath, Dizziness, Fainting spells, Chest pain, Increased palpitations (irregular heartbeat), Uncontrolled pain Home Medications: Medications to take at Discharge Hydrochlorothiazide [Hctz] 25 mg PO DAILY 03/19/14 Lisinopril [Zestril] 20 mg PO BID 03/19/14 Tamsulosin HCl [Flomax] 0.4 mg PO DAILY 03/19/14 Amitriptyline HCl 10 mg PO QHS PRN 03/22/14 Isosorbide Mononitrate [Imdur] 60 mg PO DAILY 03/22/14 Albuterol Inhaler [Ventolin Hfa] 2 puff INHALATION Q2H PRN PRN #1 03/24/14 Pantoprazole Sodium [Protonix] 40 mg PO DAILY #30 tablet 03/24/14 Metformin HCl [Glucophage] 1,000 mg PO BID 12/24/14 Hyoscyamine Sulfate 0.125 mg SL BID PRN PRN 12/18/16 Ascorbic Acid [Vitamin C] 500 mg PO DAILY 07/03/17 Aspirin [Aspirin, Baby] 81 mg PO QHS 07/03/17 Cinnamon Bark [Cinnamon] 1,000 mg PO DAILY 07/03/17 Finasteride [Proscar] 5 mg PO DAILY 07/03/17 Fish Oil/Dha/Epa [Fish Oil 1,200 mg Fish Oil] 1 each PO DAILY 07/03/17 Metoprolol Tartrate 25 mg PO BID 07/03/17 Ranitidine [Zantac] 150 mg PO BID 07/03/17 Clopidogrel Bisulfate [Plavix] 75 mg PO DAILY 10/14/17 Zolpidem Tartrate [Ambien] 10 mg PO QHS 10/14/17 Albuterol Aerosols [Ventolin Aerosols] 2.5 mg INHALATION Q4H PRN #25 vial 10/15/17 Ferrous Sulfate, Dried [Iron] 160 mg PO DAILY 06/03/18 Furosemide 40 mg PO BID 06/03/18 Glipizide [Glucotrol] 5 mg PO BID 06/03/18 Insulin Glargine [Lantus SoloStar Pen] 20 units SC QHS 06/03/18 Tiotropium [place] [Spiriva 18 MCG] 1 puff INHALATION DAILY 06/03/18 Glucosam/Ramez-Msm1/C/Aaron/Bosw [Glucosamine-Chondroitin Caplet] 1 each PO DAILY 07/22/18 Roflumilast [Daliresp] 500 mcg PO DAILY 07/22/18 Atorvastatin Calcium [Lipitor] 80 mg PO QHS 07/23/18 Prednisone 40 mg PO DAILY #30 tablet 07/25/18 levoFLOXacin tablet [Levaquin tablet] 750 mg PO DAILY@0600 #5 tablet 07/25/18 Following Prescrptions Were Given to Patient: levoFLOXacin tablet [Levaquin tablet] 750 mg PO DAILY@0600 #5 tablet Prednisone 40 mg PO DAILY #30 tablet Primary Care Physician: Ge Martinez MD [Primary Care Provider] - Please follow up with your Primary Care Physician in: 1 weeks. Disposition: Home Minutes spent on discharge:: 26 Patient Condition:: Stable Medical Necessity - Tobacco Use Smoking Status: Former smoker Meaningful Use Info Meaningful Use Diagnoses (Choose all that apply): None applicable Code Visit Inpatient E&M: 69979 Disch Hosp
--- NOTE | 2018-07-27 13:51 | CASEMGMT ---
RN CM DC PHONE CALL DC DATE: 07/25/18 DC Disposition: Home LACE/STRATA: 04/04 Intro role of CM to patient via home phone. Pt states he is doing well. No questions re: prescriptions, dc instructions or follow up. Donna MATSONN RN ACM
== END 2018-07-25 10:51 | disposition home or self-care (01) | DRG 191 ==
LOC: ED 07-23 00:06 → MS3 07-23 00:21
PROVIDERS: Admitting Provider Hospitalist; Emergency Provider Emergency Medicine; Family Provider Family Medicine; PCP Family Medicine; Referring Provider Hospitalist; Visit Provider Hospitalist
DX: J44.1 Chronic obstructive pulmonary disease with (acute) exacerbation (principal); I50.32 Chronic diastolic (congestive) heart failure; J96.10 Chronic respiratory failure, unspecified whether with hypoxia or hypercapnia; Z68.41 Body mass index [BMI] 40.0-44.9, adult; Z99.81 Dependence on supplemental oxygen; I11.0 Hypertensive heart disease with heart failure; N40.0 Benign prostatic hyperplasia without lower urinary tract symptoms; I25.10 Atherosclerotic heart disease of native coronary artery without angina pectoris; E78.5 Hyperlipidemia, unspecified; K21.9 Gastro-esophageal reflux disease without esophagitis; E66.9 Obesity, unspecified; G47.30 Sleep apnea, unspecified; I44.1 Atrioventricular block, second degree; Z86.718 Personal history of other venous thrombosis and embolism; Z79.02 Long term (current) use of antithrombotics/antiplatelets; Z95.5 Presence of coronary angioplasty implant and graft; I25.2 Old myocardial infarction; Z79.899 Other long term (current) drug therapy; Z79.4 Long term (current) use of insulin; Z87.891 Personal history of nicotine dependence; Z86.73 Personal history of transient ischemic attack (TIA), and cerebral infarction without residual deficits
CPT/HCPCS: 36415; 71045; 71275; 80048; 82962; 84484; 85025; 93005; 94640; 94667; 94668; 97162; 97530; 97802; 99285; J7030; Q9967; A4216; J2405

== ENCOUNTER 2018-08-15 09:54 | Inpatient (IN) | payer MEDICARE, BC, SELFPAY ==
[2018-07-23 00:51] VITALS: BMI 42.3
[2018-08-15] VITALS (19 sets, daily range): BP systolic 106–158; BP diastolic 63–92; PULSE 82–131; RESP 19–44; TEMP 36.5–36.7; O2SAT 93–97; BMI 35.9; BMI 36.1; BMI 36.2
--- NOTE | 2018-08-15 09:59 | RAD_ITS ---
STUDY: X-RAY CHEST REASON FOR EXAM: Male, 68 years old. Shortness of breath and dyspnea TECHNIQUE: AP COMPARISON: 07/22/2018 FINDINGS: EKG leads project over the chest. The lungs are clear and expanded. There is no demonstrated pleural abnormality. Normal size heart. Normal mediastinum and mathew. Normal visualized pulmonary arteries. Normal visualized aortic arch and descending thoracic aorta. Normal visualized thoracic spine. Normal visualized ribs, clavicles, and shoulders. There is no demonstrated abnormality of the visualized soft tissue structures of the upper abdomen. Hiatal hernia suspected. RAD/Chest 1 View (Portable) IMPRESSION: Stable, nonacute portable x-ray examination of the chest. Electronically Signed: Fly Harp MD at 11:36 EDT , Service support ,
--- NOTE | 2018-08-15 09:59 | EKG12_ITS ---
Test Reason : SOB Blood Pressure : / mmHG Vent. Rate : 109 BPM Atrial Rate : 109 BPM P-R Int : 160 ms QRS Dur : 088 ms QT Int : 344 ms P-R-T Axes : 060 046 020 degrees QTc Int : 463 ms Sinus tachycardia Otherwise normal ECG Confirmed by CARLO SHETH, DIANE ([id number]), content editor GORDY PIEDRA ([id number] on 08/17/2018 4:15:55 PM Referred By: HUMBERTO Confirmed By:DIANE MATOS MD
[2018-08-15] MEDS: Ipratropium/Albuterol Sulfate 3 ML AMPUL.NEB INHALATION ×4 (10:11→22:35)
[2018-08-15 10:25] LABS: Absolute Lymphocyte Count 0.94 X10^3/ul (0.83-4.51); Absolute Neutrophil Count 5.6 X10^3/uL (2.0-7.7); Basophil# 0.04 X10^3/uL; Basophil% 0.5 % (0-1); Eosinophil# 1.34 X10^3/uL; Eosinophils% 15.4 % (0-5); Hematocrit 35.8 % (40-54); Hemoglobin 11.7 g/dl (13.0-16.5); Lymphocyte # 0.94 X10^3/ul (4.0); Lymphocyte % 10.8 % (19-41); Mean Corp Hgb Conc 32.7 g/gl (32-36); Mean Corpuscular Hgb 28.8 pg (27.0-32.0); Mean Corpuscular Volume 88.2 fL (80-94); Mean Platelet Vol. 9.5 fl (6.2-12.0); Monocyte# 0.79 X10^3/uL; Monocyte% 9.1 % (0-10); Neutrophil # 5.55 X10^3/uL (2.7-7.7); Neutrophil % 63.9 % (47-70); Platelet Count 237 K/mm3 (150-450); RBC Distribution Width SD 41.7 fl (35.1-43.9); Red Blood Count 4.06 M/mm3 (4.6-6.2); White Blood Count 8.7 K/mm3 (4.4-11.0)
[2018-08-15] MEDS: Albuterol 2.5 MG/3 ML VIAL.NEB. INHALATION ×3 (10:26)
[2018-08-15 10:28] LABS: POSITIVE COUNT NO; POSITIVE DIFFERENTIAL NO; POSITIVE MORPHOLOGY NO
[2018-08-15] MEDS: MethylPREDNISolone 125 MG/2 ML Vial IV (10:29)
[2018-08-15 10:38] LABS: Anion Gap 10 (5-15); BUN 14 mg/dL (7-18); BUN/Creat Ratio 14.8 RATIO (10-20); Calcium,Total 8.7 mg/dL (8.5-10.1); Chloride 96 mmol/L (98-107); Creatinine, Serum 0.94 mg/dL (0.70-1.30); EST Glomerular Filtration Rate 84 mL/min (>60); Est Glom Filt Rate - Afr Amer 102 mL/min (>60); Estimated Creatinine Clearance 76.58 ml/min; Glucose 167 mg/dL (74-106); Potassium 3.2 mmol/L (3.5-5.1); Sodium Level 135 mmol/L (136-145)
[2018-08-15 10:53] LABS: BNP,B-Type NATRIURETIC PEPTIDE 16.6 pg/mL (0-100)
[2018-08-15 11:01] LABS: Base Excess 5 mmol/L (-2 to +2); Bicarbonate 29.3 mmol/L (22-26); Blood Gas Specimen Type ART; EPAP 10; FI02 30; PO2 209 mmHG (75-100); SITE R Radial; SO2 100 % (95-99); Time Given 1054; Total Carbon Dioxide 31 mmol/L; pCO2 43.8 mmHg (35-45); pH 7.43 (7.35-7.45)
--- NOTE | 2018-08-15 11:56 | ED.VISSUMM ---
- ER Visit Summary Date of Service: 08/15/18 Chief Complaint: Shortness of breath History of Present Illness: The patient is a 68 M arrives via EMS for shortness of breath he has COPD he is on home oxygen he tried nebulizers. Denies fever. His cough has not changed. Physical Examination: [ He appears in some distress, he has wheezing and diminished breath sounds bilaterally he is tachypneic. He is speaking in 4-5 word sentences. He has no lower extremity edema or calf tenderness. Normal exam otherwise Emergency Department Course and Treatment: He is given nebulizers, Solu-Medrol he is reevaluated and he improved, however he still has quite a bit of wheezing and feels short of breath. He is on his home oxygen. He will be admitted to the hospital, antibiotics were not started, he does not have an infiltrate on x-ray he has a normal white count and he has not had any sputum production or change in his cough. Admit stable condition Impression: [COPD exacerbation] This note was generated with [employer] dictation software. It may contain incorrect words, spelling, and punctuation that were not noted in review of the chart prior to signing ED Disposition - Plan for ED Patient: Referrals: Ge Martinez MD [Primary Care Provider] -
--- NOTE | 2018-08-15 12:14 | PCM.HP.STD ---
Problem List (1) GERD (gastroesophageal reflux disease) Status: Chronic (2) COPD with acute exacerbation Status: Chronic (3) Diabetes mellitus type 2 in obese Status: Chronic (4) Hyperlipidemia Status: Chronic Qualifiers: Hyperlipidemia type: unspecified Qualified Code(s): E78.5 - Hyperlipidemia, unspecified (5) Hypertension Status: Chronic Qualifiers: Hypertension type: essential hypertension Qualified Code(s): I10 - Essential (primary) hypertension (6) Benign prostatic hypertrophy Status: Chronic (7) Sleep apnea Status: Chronic Qualifiers: Sleep apnea type: unspecified type Qualified Code(s): G47.30 - Sleep apnea, unspecified (8) Coronary atherosclerosis of three affiliated coronary vessel Status: Chronic Qualifiers: [place] vs. transplanted heart: three affiliated heart Associated angina: without angina Qualified Code(s): I25.10 - Atherosclerotic heart disease of three affiliated coronary artery without angina pectoris Comment: Status post 2 stents in 2004 History of Present Illness Date of Admission: 08/15/18 Chief Complaint: Shortness of breath The patient is a 68 year old M with PMHx of COPD with chronic respiratory failure on 3 L of oxygen, hypertension, hyperlipidemia, type II DM, BPH who comes in with complaints of worsening shortness of breath ongoing for 1 day. Patient reports being in his usual state of health, no sick contacts. 1 day prior to admission, he started having shortness of breath. He felt very bad and decided to call the EMS. He was found to have a respiratory rate of 40 with generalized wheezing. Patient admits to having used his breathing treatments more than 4 times with no improvement. On admission, his temperature is 97.8 F, heart rate is 106, blood pressure is 137/79, respiratory rate of 44, SPO2 is 96% on room air. Admitting blood work showed WBC count of 8.7, hemoglobin 11.7, platelet 237, BG showed pH of 7.43, PCO2 was 43.8, PO2 was 209 and he was on BiPAP. BMP showed Na 135, K 3.2, Cl 96, HCO3 29, BUN 14, Cr 0.94, BNPep 16.6, Troponin negative. EKG shows no acute ST-T changes. 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) Status post 2 stents in 2004 COPD (chronic obstructive pulmonary disease) (Chronic) History of PTCA (Chronic) History of CVA (cerebrovascular accident) (Chronic) AV block, Mobitz 1 (Chronic) Allergies No Known Allergies Allergy (Verified 08/15/18 10:13) Home Medications: Ambulatory Orders Medication Instructions Recorded Hydrochlorothiazide [Hctz] 25 mg PO DAILY 03/19/14 Lisinopril [Zestril] 20 mg PO BID 03/19/14 Tamsulosin HCl [Flomax] 0.4 mg PO DAILY 03/19/14 Amitriptyline HCl 10 mg PO QHS PRN 03/22/14 Isosorbide Mononitrate [Imdur] 60 mg PO DAILY 03/22/14 Albuterol Inhaler [Ventolin Hfa] 2 puff INHALATION Q2H PRN PRN #1 03/24/14 Pantoprazole Sodium [Protonix] 40 mg PO DAILY #30 tablet 03/24/14 Metformin HCl [Glucophage] 1,000 mg PO BID 12/24/14 Ascorbic Acid [Vitamin C] 500 mg PO DAILY 07/03/17 Aspirin [Aspirin, Baby] 81 mg PO QHS 07/03/17 Cinnamon Bark [Cinnamon] 1,000 mg PO DAILY 07/03/17 Finasteride [Proscar] 5 mg PO DAILY 07/03/17 Fish Oil/Dha/Epa [Fish Oil 1,200 1 each PO DAILY 07/03/17 mg Fish Oil] Metoprolol Tartrate 25 mg PO BID 07/03/17 Ranitidine [Zantac] 150 mg PO BID 07/03/17 Clopidogrel Bisulfate [Plavix] 75 mg PO DAILY 10/14/17 Zolpidem Tartrate [Ambien] 10 mg PO QHS 10/14/17 Albuterol Aerosols [Ventolin 2.5 mg INHALATION Q4H PRN #25 vial 10/15/17 Aerosols] Ferrous Sulfate, Dried [Iron] 160 mg PO DAILY 06/03/18 Furosemide 40 mg PO BID 06/03/18 Glipizide [Glucotrol] 10 mg PO BID 06/03/18 Insulin Glargine [Lantus SoloStar 20 units SC QHS 06/03/18 Pen] Tiotropium [place] [Spiriva 18 MCG] 1 puff INHALATION DAILY 06/03/18 Glucosam/Ramez-Msm1/C/Aaron/Bosw 1 each PO DAILY 07/22/18 [Glucosamine-Chondroitin Caplet] Roflumilast [Daliresp] 500 mcg PO DAILY 07/22/18 Atorvastatin Calcium [Lipitor] 80 mg PO QHS 07/23/18 Azithromycin 250 mg PO DAILY 08/15/18 Multivit with Iron,Minerals 1 each PO DAILY 08/15/18 [Complete Senior] Surgical History: appendectomy, herniorrhaphy, - - Arthroscopy both knees, cardiac stents Psychiatric History: No pertinent psych hx Lives: Spouse/ Significant Other, With Family Smoking Status: Former smoker Tobacco Use: Non-smoker Alcohol: None Drugs: None - *Family History Maternal History Items: No pertinent history Paternal History Items: Heart Disease Sibling History Items: No pertinent history Review of Systems Constitutional: Denies: Anorexia, Chills, Fever, Weakness, Weight Change Eyes: Denies: Blurred vision, Cataracts, Conjunctivae Inflammation, Pain, Redness HEENT: Denies: Difficulty Hearing, Difficulty Swallowing, Head Aches, Hearing Changes, Sinus Congestion, Sinus Drainage, Sore Throat Cardiovascular: Reports: Chest Pain. Denies: Orthopnea, Palpitations, Paroxysmal Noc. Dyspnea Respiratory: Reports: Cough, Shortness of Breath, Shortness of breath at rest, Shortness of breath upon exertion, Wheezing. Denies: Sputum production Gastrointestinal: Denies: Abdominal Pain, Constipation, Hematemesis, Hematochezia, Nausea, Vomiting Genitourinary: Denies: Dysuria, Incontinence Musculoskeletal: Denies: Joint Pain, Joint Tenderness Skin: Denies: Rash, Wounds Neurological: Denies: Numbness, Tingling, Focal weakness Psychiatric: Denies: Anxiety, Depression, Homicidal Ideations, Suicidal Ideations Hematologic/ Lymphatic: Denies: Easy Bruising, Easy Bleeding VTE Information - Inpt Only VTE Present on Admission: No VTE Pharm Prophylaxis ordered?: Yes - Physical Exam General: Alert, Oriented x3, Cooperative, - - Appears comfortable on 2 L of oxygen, no conversational dyspnea, initially managed on BiPAP HEENT: Atraumatic, PERRLA, EOMI, Normocephalic Oral: Moist Mucosa Neck: Supple Lungs: Diminished, Rhonchi - generalised Cardiovascular: Regular rate, Regular Rhythm, Normal S1, Normal S2 Abdomen: Bowel Sounds Present, Soft, Non Tender, Non-Distended, No Hepato-splenomegaly Extremities: No edema Skin: No rashes, No breakdown Musculoskeletal: No Tenderness to Palpation of Joints or Extremities Lymphatic: No Cervical, Supraclavicular, or Inguinal Adenopathy Neurological: Cranial nerves II-XII grossly intact, Neuro grossly intact Psych/Mental Status: Normal Affect, Appropriate Vital Signs Temp Pulse Resp BP Pulse Ox 97.8 F 120 H 19 H 106/82 H 94 08/15/18 09:55 08/15/18 12:04 08/15/18 12:04 08/15/18 12:04 08/15/18 12:04 Oxygen Delivery Method CPAP Weight: 113.398 kg Body Mass Index (BMI) 35.9 Finger Stick Blood Glucose 148 Laboratory Tests Past 24 Hrs 08/15/18 08/15/18 08/15/18 10:05 10:05 10:05 WBC 8.7 RBC 4.06 L Hgb 11.7 L Hct 35.8 L MCV 88.2 MCH 28.8 MCHC 32.7 RDW 13.0 RDW Differential 41.7 Plt Count 237 MPV 9.5 Immature Gran % (Auto) 0.300 Neut % (Auto) 63.9 Lymph % (Auto) 10.8 L [place] % (Auto) 9.1 Eos % (Auto) 15.4 H Baso % (Auto) 0.5 Absolute Neuts (auto) 5.6 Absolute Lymphs (auto) 0.94 Total Counted Not Reportable Specimen Type Sample Site pH Bicarbonate Actual POC Total CO2 Base Excess O2 Saturation O2 % ABG pCO2 ABG pO2 O2 Delivery Device EPAP Blood Gas Notified Whom Blood Gas Notified Time Sodium 135 L Potassium 3.2 L Chloride 96 L Carbon Dioxide 29.0 Anion Gap 10 BUN 14 Creatinine 0.94 Estim Creat Clear Calc 76.58 Est GFR (MDRD) Af Amer 102 Est GFR (MDRD) Non-Af 84 BUN/Creatinine Ratio 14.8 Glucose 167 H Calcium 8.7 Troponin I < 0.015 B-Natriuretic Peptide 16.6 08/15/18 10:54 WBC RBC Hgb Hct MCV MCH MCHC RDW RDW Differential Plt Count MPV Immature Gran % (Auto) Neut % (Auto) Lymph % (Auto) [place] % (Auto) Eos % (Auto) Baso % (Auto) Absolute Neuts (auto) Absolute Lymphs (auto) Total Counted Specimen Type ART Sample Site R Radial pH 7.43 Bicarbonate Actual 29.3 H POC Total CO2 31 Base Excess 5 H O2 Saturation 100 H O2 % 30 ABG pCO2 43.8 ABG pO2 209 H O2 Delivery Device Bi / C PAP EPAP 10 Blood Gas Notified Whom ED Blood Gas Notified Time 1054 Sodium Potassium Chloride Carbon Dioxide Anion Gap BUN Creatinine Estim Creat Clear Calc Est GFR (MDRD) Af Amer Est GFR (MDRD) Non-Af BUN/Creatinine Ratio Glucose Calcium Troponin I B-Natriuretic Peptide Assessment/Plan 68 year old M with PMHx of COPD with chronic respiratory failure on 3 L of oxygen, hypertension, hyperlipidemia, type II DM, BPH who comes in with complaints of worsening shortness of breath ongoing for 1 day. 1. Acute COPD exacerbation, unclear etiology for current exacerbation, chest x-ray is negative for pneumonia, stable vitals History of COPD, on 2 L chronic oxygen Plan: Admit to PCU, monitor on telemetry, breathing treatments, Solu-Medrol, incentive spirometer 2. Hypokalemia, replaced, recheck in a.m. 3. Hypertension, controlled, continue on home lisinopril and metoprolol, continue to monitor vitals 4. Type II DM, on insulin and metformin, will hold metformin, continue with Accu-Chek with insulin sliding scale as well as home regimen 5. Depression, on amitriptyline 6. BPH, on Proscar and Flomax 7. DVT PPx- Lovenox SC Code Visit Inpatient E&M: 44376 Init Hosp L3
[2018-08-15 13:41] LABS: Bedside Glucose 216 mg/dL (70-110)
[2018-08-15] MEDS: Acetaminophen 325 MG Tablet 650 MG PO (15:14)
[2018-08-15] MEDS: Furosemide 40 MG Tablet PO (15:16)
[2018-08-15] MEDS: glipiZIDE 5 MG Tablet 10 MG PO (15:16)
[2018-08-15 16:46] LABS: Bedside Glucose 355 mg/dL (70-110)
[2018-08-15] MEDS: Enoxaparin 40 MG/0.4 ML Syringe SC (17:13)
[2018-08-15] MEDS: oxyCODONE 5 MG Tablet 10 MG PO (17:13)
[2018-08-15] MEDS: BENZOCAINE/MENTHOL 1 LOZENGE 2 LOZENGE MUCOUS MEM (21:00)
[2018-08-15] MEDS: 0.9% NaCl Peripheral Flush Adult/Peds IV (21:10)
[2018-08-15] MEDS: Famotidine 20 MG Tablet PO (21:14)
[2018-08-15] MEDS: Zolpidem Tartrate 5 MG Tablet PO (21:14)
[2018-08-15] MEDS: Atorvastatin Calcium 80 MG Tablet PO (21:14)
[2018-08-15] MEDS: Metoprolol Tartrate 25 MG Tablet PO (21:14)
[2018-08-15] MEDS: Aspirin 81 MG TAB.CHEW PO (21:14)
[2018-08-15] MEDS: Lisinopril 20 MG Tablet PO (21:16)
[2018-08-15 23:01] LABS: Bedside Glucose 360 mg/dL (70-110)
[2018-08-16] VITALS (20 sets, daily range): BP systolic 102–135; BP diastolic 53–71; PULSE 52–100; RESP 16–22; TEMP 36.6–36.8; O2SAT 95–98
[2018-08-16] MEDS: BENZOCAINE/MENTHOL 1 LOZENGE 2 LOZENGE MUCOUS MEM ×4 (02:03→22:53)
[2018-08-16] MEDS: Ipratropium/Albuterol Sulfate 3 ML AMPUL.NEB INHALATION ×6 (02:16→23:16)
[2018-08-16] MEDS: oxyCODONE 5 MG Tablet 10 MG PO ×3 (04:10→18:01)
[2018-08-16] MEDS: glipiZIDE 5 MG Tablet 10 MG PO ×2 (06:52→18:00)
[2018-08-16 07:01] LABS: Bedside Glucose 212 mg/dL (70-110)
[2018-08-16 07:22] LABS: Absolute Lymphocyte Count 0.62 X10^3/ul (0.83-4.51); Absolute Neutrophil Count 9.2 X10^3/uL (2.0-7.7); Eosinophil# 0.01 X10^3/uL; Eosinophils% 0.1 % (0-5); Hematocrit 38.4 % (40-54); Hemoglobin 12.3 g/dl (13.0-16.5); Lymphocyte # 0.62 X10^3/ul (4.0); Lymphocyte % 5.9 % (19-41); Mean Corpuscular Hgb 28.6 pg (27.0-32.0); Mean Corpuscular Volume 89.3 fL (80-94); Mean Platelet Vol. 10.3 fl (6.2-12.0); Monocyte# 0.56 X10^3/uL; Monocyte% 5.4 % (0-10); Neutrophil # 9.21 X10^3/uL (2.7-7.7); Neutrophil % 88.2 % (47-70); Platelet Count 298 K/mm3 (150-450); RBC Distribution Width CV 12.9 % (11.6-14.6); RBC Distribution Width SD 41.8 fl (35.1-43.9); White Blood Count 10.4 K/mm3 (4.4-11.0)
[2018-08-16 07:25] LABS: POSITIVE COUNT NO; POSITIVE DIFFERENTIAL NO; POSITIVE MORPHOLOGY NO
[2018-08-16 07:40] LABS: Anion Gap 11 (5-15); BUN 23 mg/dL (7-18); BUN/Creat Ratio 23.6 RATIO (10-20); Calcium,Total 9.3 mg/dL (8.5-10.1); Chloride 97 mmol/L (98-107); Creatinine, Serum 0.97 mg/dL (0.70-1.30); EST Glomerular Filtration Rate 81 mL/min (>60); Est Glom Filt Rate - Afr Amer 98 mL/min (>60); Estimated Creatinine Clearance 74.21 ml/min; Glucose 200 mg/dL (74-106); Potassium 4.4 mmol/L (3.5-5.1); Sodium Level 135 mmol/L (136-145)
[2018-08-16] MEDS: Furosemide 40 MG Tablet PO ×2 (10:11→18:01)
[2018-08-16] MEDS: Famotidine 20 MG Tablet PO ×2 (10:11→21:34)
[2018-08-16] MEDS: Isosorbide Mononitrate 60 MG Tablet PO (10:11)
[2018-08-16] MEDS: Enoxaparin 40 MG/0.4 ML Syringe SC (10:11)
[2018-08-16] MEDS: Tamsulosin HCl 0.4 MG Capsule PO (10:11)
[2018-08-16] MEDS: hydroCHLOROthiazide 25 MG Tablet PO (10:11)
[2018-08-16] MEDS: Lisinopril 20 MG Tablet PO (10:12)
[2018-08-16] MEDS: Clopidogrel Bisulfate 75 MG Tablet PO (10:12)
[2018-08-16] MEDS: Finasteride 5 MG Tablet PO (10:12)
[2018-08-16] MEDS: Metoprolol Tartrate 25 MG Tablet PO (10:12)
[2018-08-16] MEDS: Pantoprazole Sodium 40 MG Tablet PO (10:12)
[2018-08-16 11:25] LABS: Bedside Glucose 202 mg/dL (70-110)
--- NOTE | 2018-08-16 12:58 | PCM.PN.HOSP ---
Subjective: Patient was seen and examined. He feels improved. Been coughing up a lot, reactive or yellowish sputum. Denies any fever or chills. Objective: Physical Exam General: Alert, Oriented x3, Cooperative, - - on 2 L of oxygen HEENT: Atraumatic, PERRLA, EOMI, Normocephalic Oral: Moist Mucosa Neck: Supple Lungs: Diminished, no wheezes heard Cardiovascular: Regular rate, Regular Rhythm, Normal S1, Normal S2 Abdomen: Bowel Sounds Present, Soft, Non Tender, Non-Distended, No Hepato-splenomegaly Extremities: No edema Skin: No rashes, No breakdown Musculoskeletal: No Tenderness to Palpation of Joints or Extremities Lymphatic: No Cervical, Supraclavicular, or Inguinal Adenopathy Neurological: Cranial nerves II-XII grossly intact, Neuro grossly intact Psych/Mental Status: Normal Affect, Appropriate Vitals/I&O's: Vital Signs Temp Pulse Resp BP Pulse Ox 98.0 F 75 20 H 122/71 H 96 08/16/18 09:48 08/16/18 11:21 08/16/18 11:17 08/16/18 09:48 08/16/18 09:48 Oxygen Flow Rate (L/min) 3 Oxygen Delivery Method Nasal Cannula Weight: 114.3 kg Body Mass Index (BMI) 36.1 Finger Stick Blood Glucose 148 Intake and Output for Last 24 Hours 08/14/18 08/15/18 08/16/18 23:59 23:59 23:59 Intake Total 360 / 360 1200 / 1200 Output Total 500 / 500 1000 / 1000 Balance -140 / -140 200 / 200 Microbiology Past 72 Hours 08/15/18 12:20 Mucosa - Nasopharyngeal Respiratory Panel (PCR) - Final Laboratory Results 08/15/18 13:33: POC Glucose 216 H 08/15/18 16:02: POC Glucose 355 H 08/15/18 20:50: POC Glucose 360 H 08/16/18 05:20: WBC 10.4, RBC 4.30 L, Hgb 12.3 L, Hct 38.4 L, MCV 89.3, MCH 28.6, MCHC 32.0, RDW 12.9, RDW Differential 41.8, Plt Count 298, MPV 10.3, Immature Gran % (Auto) 0.400, Neut % (Auto) 88.2 H, Lymph % (Auto) 5.9 L, Bailey % (Auto) 5.4, Eos % (Auto) 0.1, Baso % (Auto) 0.0, Absolute Neuts (auto) 9.2 H, Absolute Lymphs (auto) 0.62 L, Total Counted Not Reportable 08/16/18 05:20: Sodium 135 L, Potassium 4.4, Chloride 97 L, Carbon Dioxide 27.0, Anion Gap 11, BUN 23 H, Creatinine 0.97, Estim Creat Clear Calc 74.21, Est GFR (MDRD) Af Amer 98, Est GFR (MDRD) Non-Af 81, BUN/Creatinine Ratio 23.6 H, Glucose 200 H, Calcium 9.3 08/16/18 06:48: POC Glucose 212 H 08/16/18 11:15: POC Glucose 202 H Current Medications Acetaminophen (Tylenol) 650 mg PO Q6H PRN PRN PRN Reason: Mild Pain (1-3)/Temp > 100.7 F Last Admin: 08/15/18 15:14 Dose: 650 mg Albuterol Sulfate (Ventolin Aerosols) 2.5 mg INHALATION Q4H PRN [facility] Albuterol/Ipratropium (Duoneb) 3 ml INHALATION Q4H.RT [facility] Last Admin: 08/16/18 11:17 Dose: 3 ml Amitriptyline HCl (Elavil) 10 mg PO QHS PRN PRN PRN Reason: MIGRAINE SYMPTOMS Aspirin (Aspirin, Baby) 81 mg PO QHS [facility] Last Admin: 08/15/18 21:14 Dose: 81 mg Atorvastatin Calcium (Lipitor) 80 mg PO QHS [facility] Last Admin: 08/15/18 21:14 Dose: 80 mg Clopidogrel Bisulfate (Plavix) 75 mg PO DAILY [facility] Last Admin: 08/16/18 10:12 Dose: 75 mg Enoxaparin Sodium (Lovenox) 40 mg SC DAILY [facility] Last Admin: 08/16/18 10:11 Dose: 40 mg Famotidine (Pepcid) 20 mg PO BID [facility] Last Admin: 08/16/18 10:11 Dose: 20 mg Finasteride (Proscar) 5 mg PO DAILY [facility] Last Admin: 08/16/18 10:12 Dose: 5 mg Furosemide (Lasix) 40 mg PO 1000,1800 [facility] Last Admin: 03/17/19 10:11 Dose: 40 mg [facility] Last Admin: 08/16/18 06:52 Dose: 10 mg Hydrochlorothiazide (Hctz) 25 mg PO DAILY [facility] Last Admin: 08/16/18 10:11 Dose: 25 mg Insulin Glargine (Lantus (Bkc)) 20 units SC QHS [facility] Last Admin: 08/15/18 21:15 Dose: 20 u Isosorbide Mononitrate (Imdur) 60 mg PO DAILY [facility] Last Admin: 08/16/18 10:11 Dose: 60 mg Lisinopril (Zestril) 20 mg PO BID [facility] Last Admin: 08/16/18 10:12 Dose: 20 mg Magnesium Hydroxide (Milk Of Magnesia) 30 ml PO DAILY PRN PRN Reason: Constipation Methylprednisolone (Solu-Medrol) 40 mg IV Q8 [facility] Last Admin: 08/16/18 06:52 Dose: 40 mg Metoprolol Tartrate (Lopressor (Beta Jose Antonio)) 25 mg PO BID [facility] Last Admin: 08/16/18 10:12 Dose: 25 mg Ondansetron HCl (Zofran) 4 mg IV Q8H PRN PRN PRN Reason: Nausea Oxycodone HCl (Oxyir) 10 mg PO Q4H PRN PRN PRN Reason: SEVERE PAIN (6-10/10) Last Admin: 08/16/18 10:13 Dose: 10 mg Pantoprazole Sodium (Protonix) 40 mg PO DAILY [facility] Last Admin: 08/16/18 10:12 Dose: 40 mg Sodium Chloride () 5 - 15 ml IV UD PRN PRN Reason: SALINE FLUSH Last Admin: 08/15/18 21:10 Dose: 10 ml Tamsulosin HCl (Flomax) 0.4 mg PO DAILY [facility] Last Admin: 08/16/18 10:11 Dose: 0.4 mg Throat Lozenges (Cepacol Sore Throat Lozenge) 2 lozenge MUCOUS MEM Q2H PRN PRN PRN Reason: sore throat, cough Last Admin: 08/16/18 10:13 Dose: 2 lozenge Zolpidem Tartrate (Ambien (Generic)) 5 mg PO QHS [facility] Last Admin: 08/15/18 21:14 Dose: 5 mg Medical Necessity - Tobacco Use Smoking Status: Former smoker Tobacco Use: Non-smoker Assessment/Plan 68 year old M with PMHx of COPD with chronic respiratory failure on 3 L of oxygen, hypertension, hyperlipidemia, type II DM, BPH who comes in with complaints of worsening shortness of breath ongoing for 1 day. 1. Acute COPD exacerbation, unclear etiology for current exacerbation, appears improved chest x-ray is negative for pneumonia, stable vitals Respiratory panel is negative, will continue on IV Solu-Medrol, breathing treatments, incentive spirometer Will switch likely to prednisone taper from tomorrow 2. Hypokalemia, resolved 3. Hypertension, controlled, continue on home lisinopril and metoprolol, continue to monitor vitals 4. Type II DM, blood sugars are uncontrolled, on home insulin regimen, glipizide, would resume home metformin, will continue with Accu-Chek with insulin sliding scale as well as home regimen 5. Depression, on amitriptyline 6. BPH, on Proscar and Flomax 7. DVT PPx- Lovenox SC 8. Disposition - possible DC home in am Code Visit Inpatient E&M: 11074 Subs Hosp L2
[2018-08-16] MEDS: metFORMIN HCl 1,000 MG Tablet 1000 MG PO (18:00)
[2018-08-16 18:11] LABS: Bedside Glucose 261 mg/dL (70-110)
[2018-08-16] MEDS: Zolpidem Tartrate 5 MG Tablet PO (21:32)
[2018-08-16] MEDS: Aspirin 81 MG TAB.CHEW PO (21:33)
[2018-08-16] MEDS: Atorvastatin Calcium 80 MG Tablet PO (21:34)
[2018-08-16] MEDS: 0.9% NaCl Peripheral Flush Adult/Peds IV (21:38)
[2018-08-16 22:51] LABS: Bedside Glucose 389 mg/dL (70-110)
[2018-08-16] MEDS: Acetylcysteine 800 MG/4 ML VIAL.NEB. INHALATION (23:16)
[2018-08-17] VITALS (12 sets, daily range): BP systolic 136–144; BP diastolic 80–90; PULSE 64–103; RESP 16–22; TEMP 36.6–36.8; O2SAT 95–98
[2018-08-17] MEDS: Ipratropium/Albuterol Sulfate 3 ML AMPUL.NEB INHALATION ×3 (03:28→11:08)
[2018-08-17] MEDS: 0.9% NaCl Peripheral Flush Adult/Peds IV (05:32)
[2018-08-17] MEDS: Acetylcysteine 800 MG/4 ML VIAL.NEB. INHALATION (06:56)
[2018-08-17 07:15] LABS: Bedside Glucose 194 mg/dL (70-110)
[2018-08-17] MEDS: glipiZIDE 5 MG Tablet 10 MG PO (08:25)
[2018-08-17] MEDS: metFORMIN HCl 1,000 MG Tablet 1000 MG PO (08:25)
[2018-08-17] MEDS: BENZOCAINE/MENTHOL 1 LOZENGE 2 LOZENGE MUCOUS MEM (08:31)
[2018-08-17] MEDS: Magnesium Hydroxide 30 ML UDC PO (08:31)
[2018-08-17] MEDS: oxyCODONE 5 MG Tablet 10 MG PO (08:32)
[2018-08-17] MEDS: Tamsulosin HCl 0.4 MG Capsule PO (09:24)
[2018-08-17] MEDS: hydroCHLOROthiazide 25 MG Tablet PO (09:24)
[2018-08-17] MEDS: Isosorbide Mononitrate 60 MG Tablet PO (09:25)
[2018-08-17] MEDS: Furosemide 40 MG Tablet PO (09:25)
[2018-08-17] MEDS: Metoprolol Tartrate 25 MG Tablet PO (09:25)
[2018-08-17] MEDS: Enoxaparin 40 MG/0.4 ML Syringe SC (09:26)
[2018-08-17] MEDS: Famotidine 20 MG Tablet PO (09:27)
[2018-08-17] MEDS: Finasteride 5 MG Tablet PO (09:27)
[2018-08-17] MEDS: Lisinopril 20 MG Tablet PO (09:27)
[2018-08-17] MEDS: Pantoprazole Sodium 40 MG Tablet PO (09:27)
[2018-08-17] MEDS: Clopidogrel Bisulfate 75 MG Tablet PO (09:27)
[2018-08-17 11:25] LABS: Bedside Glucose 253 mg/dL (70-110)
--- NOTE | 2018-08-17 13:05 | CASEMGMT ---
SHONNA WILBURN assessment: Face to Face with patient for initial transition planning/care coordination assessment. SHONNA WILBURN introduced self and role at [facility], pt voices understanding and consents to assessment at this time. Pt is sitting up on side of bed in no distress at this time. Pt is A/Ox4 at this time and answers all questions appropriately at this time. Pt's is at bedside for part of the assessment. Care providers, pharmacy, and demographics verified at this time. PCP: Juan Specialists: Anna puliona at [facility]; Conor, cardio at [facility] Preferred Pharmacy: [facility] Insurance: [facility] A/B, [place], [place] Prescription Benefit: MCR D Living Will/HPOA: Pt does have LW/HPOA and they are on file at [facility] at this time. Pt states that his , Caro Clemens, is HPOA. LNOK: Caro Clemens, Living Arrangements: Pt states lives with in 1 story home with 1-2 steps in and states no concerns at home at this time. Pt states is normally independent with ADL's. Transportation: Pt states drives self and states no transportation concerns at this time. DME/HHC: Pt states has the following DME: cane, walker, shower chair, cpap, nebulizer and 3 liters thru [facility] and states has been using oxygen more continuously even though he tries not to. Pt states several times 'I know that I am end stage.' This RN AKILA offered palliative/hospice info to pt at this time and pt is interested at this time. Walt SW aware, voices understanding. Pt does state that he had recent rotator cuff surgery and states is set up to start OP rehab at [facility]. Pt states no concerns with going home at time of discharge. Pt states is retired. Pt states does not smoke but does drink 2-3oz of red wine daily. Pt states no further concerns/needs at this time. CM to follow for any further discharge planning/needs. Advised pt to ask for CM if any further questions/concerns/needs arise, voices understanding. Plan: Home [place] SHONNA WILBURN
--- NOTE | 2018-08-17 14:16 | CASEMGMT ---
Per RN CM patient wanted information on Palliative Care. LAVERNE met with patient and briefly discussed Palliative Care and gave him a pamphlet. LAVERNE let him know if he would like a Palliative Care referral his primary care could also order this. He thanked LAVERNE for the assistance. He was getting his shirt and coat on as he was being discharged. Elicia AUGUSTINE MSW
--- NOTE | 2018-08-17 14:19 | PCM.DC ---
- Discharge Diagnoses Reason(s) for Visit for Discharge Instructions: Shortness of breath You will use the following diet at home:: Calorie/Carbohydrate Controlled (specify 1200, 1400, etc), Cardiac Your food should be the consistency of: Regular Your liquids should be the consistency of: Regular/Thin Discharge Activity: Return to Normal Activity Additional Instructions: Continue to use her oxygen all the time. Complete your prednisone taper. Follow-up with your primary care doctor within 1-2 weeks. Allergies/Adverse Reactions: Allergies No Known Allergies Allergy (Verified 08/15/18 10:13) Medications to take at Discharge Hydrochlorothiazide [Hctz] 25 mg PO DAILY 03/19/14 Lisinopril [Zestril] 20 mg PO BID 03/19/14 Tamsulosin HCl [Flomax] 0.4 mg PO DAILY 03/19/14 Amitriptyline HCl 10 mg PO QHS PRN 03/22/14 Isosorbide Mononitrate [Imdur] 60 mg PO DAILY 03/22/14 Albuterol Inhaler [Ventolin Hfa] 2 puff INHALATION Q2H PRN PRN #1 03/24/14 Pantoprazole Sodium [Protonix] 40 mg PO DAILY #30 tablet 03/24/14 Metformin HCl [Glucophage] 1,000 mg PO BID 12/24/14 Ascorbic Acid [Vitamin C] 500 mg PO DAILY 07/03/17 Aspirin [Aspirin, Baby] 81 mg PO QHS 07/03/17 Cinnamon Bark [Cinnamon] 1,000 mg PO DAILY 07/03/17 Finasteride [Proscar] 5 mg PO DAILY 07/03/17 Fish Oil/Dha/Epa [Fish Oil 1,200 mg Fish Oil] 1 each PO DAILY 07/03/17 Metoprolol Tartrate 25 mg PO BID 07/03/17 Ranitidine [Zantac] 150 mg PO BID 07/03/17 Clopidogrel Bisulfate [Plavix] 75 mg PO DAILY 10/14/17 Zolpidem Tartrate [Ambien] 10 mg PO QHS 10/14/17 Albuterol Aerosols [Ventolin Aerosols] 2.5 mg INHALATION Q4H PRN #25 vial 10/15/17 Ferrous Sulfate, Dried [Iron] 160 mg PO DAILY 06/03/18 Furosemide 40 mg PO BID 06/03/18 Glipizide [Glucotrol] 10 mg PO BID 06/03/18 Insulin Glargine [Lantus SoloStar Pen] 20 units SC QHS 06/03/18 Tiotropium [place] [Spiriva 18 MCG] 1 puff INHALATION DAILY 06/03/18 Glucosam/Ramez-Msm1/C/Aaron/Bosw [Glucosamine-Chondroitin Caplet] 1 each PO DAILY 07/22/18 Roflumilast [Daliresp] 500 mcg PO DAILY 07/22/18 Atorvastatin Calcium [Lipitor] 80 mg PO QHS 07/23/18 Multivit with Iron,Minerals [Complete Senior] 1 each PO DAILY 08/15/18 Acetaminophen [Tylenol Tablet] 650 mg PO Q6H PRN PRN tablet 08/17/18 Prednisone 10 mg PO DAILY #30 tablet 08/17/18 The following prescriptions were given: Prednisone 10 mg PO DAILY #30 tablet Primary Care Physician: Ge Martinez MD [Primary Care Provider] - Please follow up with your Primary Care Physician in: within 1-2 weeks Test Results: Test results from this visit will be discussed in further detail at your follow-up appointment, if applicable. Proposed Discharge Date: 08/17/18
--- NOTE | 2018-08-17 14:20 | PCM.DC.SUM ---
Discharge Date and Diagnosis Date of Admission: 08/15/18 Date of Discharge: 08/17/18 - Primary Discharge Diagnosis Acute COPD exacerbation Hypokalemia - Secondary Discharge Diagnosis Chronic Problems GERD (gastroesophageal reflux disease) (Chronic) COPD with acute exacerbation (Chronic) Diabetes mellitus type 2 in obese (Chronic) Hyperlipidemia (Chronic) Hypertension (Chronic) Benign prostatic hypertrophy (Chronic) Sleep apnea (Chronic) Coronary atherosclerosis of [place] coronary vessel (Chronic) Status post 2 stents in 2004 COPD (chronic obstructive pulmonary disease) (Chronic) History of PTCA (Chronic) History of CVA (cerebrovascular accident) (Chronic) AV block, [place] 1 (Chronic) Hospital Course and Treatment Imaging Results: Clinical Impression(s) from Imaging Studies Chest X-Ray 08/15/18 09:59 IMPRESSION: Stable, nonacute portable x-ray examination of the chest. Electronically Signed: Fly Harp MD at 11:36 EDT , Service support , None Operations: None Procedures: None Summary of Care Provided: 68 year old M with PMHx of COPD with chronic respiratory failure on 3 L of oxygen, hypertension, hyperlipidemia, type II DM, BPH who comes in with complaints of worsening shortness of breath ongoing for 1 day. Patient was admitted to the floor and managed as acute CHF exacerbation. Respiratory panel was negative. Chest x-ray was negative for any acute cardio point hypoxia. He was managed on IV Solu-Medrol, breathing treatments as well as encouraged to use incentive spirometer. Patient improved. He was discharged on a prednisone taper. He was found to have hypokalemia that was replaced. Subjective: On the day of discharge, patient appears improved. He is on his home 2 L of oxygen. Denies chest pain or dizziness or shortness of breath Objective: Physical Exam General: Alert, Oriented x3, Cooperative, - - on 2 L of oxygen HEENT: Atraumatic, PERRLA, EOMI, Normocephalic Oral: Moist Mucosa Neck: Supple Lungs: Diminished, no wheezes heard Cardiovascular: Regular rate, Regular Rhythm, Normal S1, Normal S2 Abdomen: Bowel Sounds Present, Soft, Non Tender, Non-Distended, No Hepato-splenomegaly Extremities: No edema Skin: No rashes, No breakdown Musculoskeletal: No Tenderness to Palpation of Joints or Extremities Lymphatic: No Cervical, Supraclavicular, or Inguinal Adenopathy Neurological: Cranial nerves II-XII grossly intact, Neuro grossly intact Psych/Mental Status: Normal Affect, Appropriate - Physical Exam Vital Signs Temp Pulse Resp BP Pulse Ox 98.2 F 82 20 H 144/90 H 96 08/17/18 09:14 08/17/18 11:08 08/17/18 11:08 08/17/18 09:14 08/17/18 09:14 Oxygen Flow Rate (L/min) 3 Oxygen Delivery Method Nasal Cannula Weight: 114.3 kg Body Mass Index (BMI) 36.1 Finger Stick Blood Glucose 148 Intake and Output for Last 24 Hours 08/15/18 08/16/18 08/17/18 23:59 23:59 23:59 Intake Total 360 / 360 1690 / 1690 1040 / 1040 Output Total 500 / 500 1000 / 1000 Balance -140 / -140 690 / 690 1040 / 1040 Microbiology Past 72 Hours 08/15/18 12:20 Respiratory Panel (PCR) - Final Mucosa - Nasopharyngeal POC Glucose 08/17/18 08/17/18 08/16/18 11:21 06:53 21:31 POC Glucose 253 H 194 H 389 H 08/16/18 17:55 POC Glucose 261 H Discharge Diet: Low fat/ Low Cholesterol, 2000 mg Sodium Diet Discharge Activity: Return to Normal Activity Home Medications: Medications to take at Discharge Hydrochlorothiazide [Hctz] 25 mg PO DAILY 03/19/14 Lisinopril [Zestril] 20 mg PO BID 03/19/14 Tamsulosin HCl [Flomax] 0.4 mg PO DAILY 03/19/14 Amitriptyline HCl 10 mg PO QHS PRN 03/22/14 Isosorbide Mononitrate [Imdur] 60 mg PO DAILY 03/22/14 Albuterol Inhaler [Ventolin Hfa] 2 puff INHALATION Q2H PRN PRN #1 03/24/14 Pantoprazole Sodium [Protonix] 40 mg PO DAILY #30 tablet 03/24/14 Metformin HCl [Glucophage] 1,000 mg PO BID 12/24/14 Ascorbic Acid [Vitamin C] 500 mg PO DAILY 07/03/17 Aspirin [Aspirin, Baby] 81 mg PO QHS 07/03/17 Cinnamon Bark [Cinnamon] 1,000 mg PO DAILY 07/03/17 Finasteride [Proscar] 5 mg PO DAILY 07/03/17 Fish Oil/Dha/Epa [Fish Oil 1,200 mg Fish Oil] 1 each PO DAILY 07/03/17 Metoprolol Tartrate 25 mg PO BID 07/03/17 Ranitidine [Zantac] 150 mg PO BID 07/03/17 Clopidogrel Bisulfate [Plavix] 75 mg PO DAILY 10/14/17 Zolpidem Tartrate [Ambien] 10 mg PO QHS 10/14/17 Albuterol Aerosols [Ventolin Aerosols] 2.5 mg INHALATION Q4H PRN #25 vial 10/15/17 Ferrous Sulfate, Dried [Iron] 160 mg PO DAILY 06/03/18 Furosemide 40 mg PO BID 06/03/18 Glipizide [Glucotrol] 10 mg PO BID 06/03/18 Insulin Glargine [Lantus SoloStar Pen] 20 units SC QHS 06/03/18 Tiotropium [place] [Spiriva 18 MCG] 1 puff INHALATION DAILY 06/03/18 Glucosam/Ramez-Msm1/C/Aaron/Bosw [Glucosamine-Chondroitin Caplet] 1 each PO DAILY 07/22/18 Roflumilast [Daliresp] 500 mcg PO DAILY 07/22/18 Atorvastatin Calcium [Lipitor] 80 mg PO QHS 07/23/18 Multivit with Iron,Minerals [Complete Senior] 1 each PO DAILY 08/15/18 Acetaminophen [Tylenol Tablet] 650 mg PO Q6H PRN PRN tablet 08/17/18 Prednisone 10 mg PO DAILY #30 tablet 08/17/18 Following Prescrptions Were Given to Patient: Prednisone 10 mg PO DAILY #30 tablet Primary Care Physician: Ge Martinez MD [Primary Care Provider] - Please follow up with your Primary Care Physician in: within 1-2 weeks Disposition: Home Minutes spent on discharge:: 40 Patient Condition:: Stable Medical Necessity - Tobacco Use Smoking Status: Former smoker Tobacco Use: Non-smoker Meaningful Use Info Meaningful Use Diagnoses (Choose all that apply): None applicable Code Visit Inpatient E&M: 82424 Disch Hosp
--- NOTE | 2018-08-18 16:03 | CASEMGMT ---
SHONNA WILBURN F/U Phone Call LACE: 12 Strata: 4 Discharge date: 08/17/18 Call date: 08/18/18 Call time: [id number] Attempted to reach pt without success at this time, message left with pt to call this SHONNA WILBURN back, if able. [place] SHONNA WILBURN Admission dx: Acute COPD exacerbation
== END 2018-08-17 14:52 | disposition home or self-care (01) | DRG 191 ==
LOC: ED 12:21 → PCU 12:59
PROVIDERS: Admitting Provider Internal Medicine; Emergency Provider Emergency Medicine; Family Provider Family Medicine; PCP Family Medicine; Visit Provider Internal Medicine
DX: J44.1 Chronic obstructive pulmonary disease with (acute) exacerbation (principal); J96.10 Chronic respiratory failure, unspecified whether with hypoxia or hypercapnia; Z99.81 Dependence on supplemental oxygen; N40.0 Benign prostatic hyperplasia without lower urinary tract symptoms; E11.9 Type 2 diabetes mellitus without complications; E78.5 Hyperlipidemia, unspecified; E87.6 Hypokalemia; I10 Essential (primary) hypertension; K21.9 Gastro-esophageal reflux disease without esophagitis; G47.30 Sleep apnea, unspecified; I25.10 Atherosclerotic heart disease of native coronary artery without angina pectoris; Z87.891 Personal history of nicotine dependence; Z95.5 Presence of coronary angioplasty implant and graft; Z86.73 Personal history of transient ischemic attack (TIA), and cerebral infarction without residual deficits; Z79.4 Long term (current) use of insulin
CPT/HCPCS: 36415; 36600; 71045; 80048; 82803; 82962; 83880; 84484; 85025; 87633; 93005; 94002; 94640; 94660; 97161; 97165; 99251; 99285; A4216; G0463